=== PATIENT | female | born 1960 | race Caucasian/White ===

== ENCOUNTER 2017-09-22 14:24 | Outpatient (CLI) | payer MEDICARE, MEDICAID ==
[~2017-09-22] VITALS: Ht 170.2 cm; Wt 76.7 kg
[~2017-09-22 14:24] MED LIST: ATOR80TA PO; BISO1TAB39 PO; CEPH250T PO; CLON2TAB16 PO; DULO60CA6 PO; FNT100TD TD; FURO20TA4 PO; HCT25T PO; HYDR-2997 PO; HYDR1TAB86 PO; KETO-22 PO; MTF500T PO; POTA99TA7 PO; QTP100T PO; THYR65TA2 PO; TRM50T PO; WARF4TAB PO
[2017-09-22] MEDS ORDERED: ATOR40TA70 PO (14:41)
[2017-09-22] MEDS ORDERED: METF500T4 PO (14:41)
[2017-09-22] MEDS ORDERED: DICL75TA2 PO (14:41)
[2017-09-22] MEDS ORDERED: ALPR1TAB7 PO (14:41)
[2017-09-22] MEDS ORDERED: BISO1TAB3 PO (14:41)
[2017-09-22] MEDS ORDERED: LEVO25TA5 PO (14:41)
[2017-09-22] MEDS ORDERED: ASPI-808 PO (14:41)
[2017-09-22] MEDS ORDERED: TERBIN250T PO (14:41)
[2017-09-22] MEDS ORDERED: OMEP20CA12 PO (14:41)
[2017-09-22] MEDS ORDERED: DULO60CA58 PO (14:41)
[2017-09-22] MEDS ORDERED: MULT-35 PO (14:41)
[2017-09-22] MEDS ORDERED: LEVE500T6 PO ×2 (14:41)
[2017-09-22 14:46] VITALS: BP 128/90
== END 2017-09-22 15:40 | disposition home or self-care (01) ==
LOC: PREOP 14:24
PROVIDERS: ATTEND Podiatrist Foot & Ankle Surgery
DX: Z01.818 Encounter for other preprocedural examination (principal); Z11.2 Encounter for screening for other bacterial diseases; M20.11 Hallux valgus (acquired), right foot; M20.41 Other hammer toe(s) (acquired), right foot
CPT/HCPCS: 87081

== ENCOUNTER 2017-10-02 11:18 | Day surgery (SDC) | payer MEDICARE, MEDICAID ==
[~2017-10-02] VITALS: Ht 170.2 cm; Wt 76.7 kg
[~2017-10-02 11:18] MED LIST changes: +ALPR1TAB7 PO; +ASPI-808 PO; +ATOR40TA70 PO; +BISO1TAB3 PO; +DICL75TA2 PO; +DULO60CA58 PO; +LEVE500T6 PO; +LEVO25TA5 PO; +METF500T4 PO; +MULT-35 PO; +OMEP20CA12 PO; +TERBIN250T PO
[2017-10-02] MEDS ORDERED: LACTATED RINGERS 1,000 ML IV PRN (11:57)
[2017-10-02] MEDS ORDERED: ceFAZolin INJECTION 1,000 MG in NS (IVPB) 50 ML IV ONE (12:00)
[2017-10-02] MEDS ORDERED: FAMOTIDINE 20MG/2ML IV (PEPCID) IV ONE (12:00)
[2017-10-02 12:11] VITALS: BP 115/86
[2017-10-02] MEDS ORDERED: fentaNYL INJECTION 100 MCG/2 ML AMP ONE (12:43)
[2017-10-02] MEDS ORDERED: DEXAMETHASONE 10 MG/ML (DECADRON) 1 ML VIAL ONE (12:43)
[2017-10-02] MEDS ORDERED: proPOfol 200 MG/20 ML (DIPRIVAN) VIAL IV ONE (12:43)
[2017-10-02] MEDS ORDERED: MIDAZOLAM 2 MG/2 ML (VERSED) VIAL ONE (12:43)
[2017-10-02] MEDS ORDERED: LIDOCAINE PF 2% 5 ML (XYLOCAINE) VIAL ONE (12:43)
[2017-10-02] MEDS ORDERED: SEVOFLURANE (ULTANE) 15 ML INHAL SOLN ONE (12:43)
[2017-10-02] MEDS ORDERED: ONDANSETRON 4 MG/2 ML (SDV) Z0FRAN ONE (12:43)
[2017-10-02] MEDS ORDERED: BUPIVACAINE 0.5% 30 ML (SENSORCAINE) VIAL ONE (12:48)
[2017-10-02] MEDS ORDERED: LIDOCAINE 1% INJ 20 ML (XYLOCAINE) VIAL ONE (12:48)
--- NOTE | 2017-10-02 13:12 | Progress Note-Pre Operative ---
Pre-Operative Progress Note H&P Reviewed The H&P was reviewed, patient examined and no changes noted. Date Seen by Provider: Oct 02, 2017 Time Seen by Provider: 13:11 Date H&P Reviewed: Oct 02, 2017 Time H&P Reviewed: 13:11 Pre-Operative Diagnosis: Hallux Valgus, 2nd Hammertoe, right foot ASHA CAUSEY DPM Oct 02, 2017 1:12 pm
[2017-10-02] MEDS ORDERED: LACTATED RINGERS 1,000 ML IV SCH (15:09)
--- NOTE | 2017-10-02 15:09 | Progress Note-Post Operative ---
Post-Operative Progess Note Surgeon (s)/Inside Sales Manager (s) Surgeon ASHA CAUSEY DPM Inside Sales Manager: none Pre-Operative Diagnosis Hallux Valgus, 2nd Hammertoe, right foot Post-Operative Diagnosis Same Procedure & Operative Findings Date of Procedure 10/02/17 Procedure Performed/Findings Arthrodesis to the right 1st metatarsal-phalangeal joint, reduction of the right 2nd hammertoe Anesthesia Type General Estimated Blood Loss Estimated blood loss (mL): Minimal Specimens/Packing Specimens Removed none ASHA CAUSEY DPM Oct 02, 2017 3:09 pm
[2017-10-02] MEDS ORDERED: ONDANSETRON 4 MG/2 ML (SDV) Z0FRAN IVP PRN (15:15)
[2017-10-02] MEDS ORDERED: ACHD5005 PO (15:15)
[2017-10-02] MEDS ORDERED: CEPH500C PO (15:15)
[2017-10-02] MEDS: morphine INJ 10 MG/ML 1ML (SYR OR VIAL) IVP PRN ×3 (15:27→15:37)
--- NOTE | 2017-10-02 15:43 | Diagnostic Imaging Report ---
INDICATION: Postop. FINDINGS: Bunionectomy and treatment of hallux valgus at the first ray performed in good alignment. A percutaneous pin transfixes the proximal middle and distal phalanges of the second toe. IMPRESSION: Markedly improved forefoot alignment postop. No suspicious retained opaque postop foreign body. Dictated by: Dictated on workstation # [id number]
[2017-10-02 16:10] VITALS: BP 115/72
--- NOTE | 2017-10-02 16:22 | Physical Therapy Ortho Eval ---
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 Subjective Subjective Pt has family assist once home. Entry Into Home: Level Entry Steps Into Home: 0 Steps Inside Home: 0 Motor Control Motor Control: Motor Control WNL right UE not functional for crutches or FWW due to old stroke. Right LE has functional mobility and strength. Mild increase in tone right LE. ROM ROM: WFL, except focal deficit Strength Strength: Gen Weak,No Focal Deficit has functional tone in the right LE Transfer Transfers (B, C, W/C) (FIM): 4 Pt to be wt bearing through the right heal only. This results in minor loss of balance posterior. Family instructed to walk behind the patient with a hand on her low back in the event she would begin to lose balance. Gait Gait Assistive Device: Cane Small Base Quad Right Lower Extremity: Right Weight Bearing Status RLE: Non Weight Bearing Left Lower Extremity: Left Weight Bearing Status LLE: Non Weight Bearing Other Weight Bearing Inst.: non wt bearing through the toes on the right foot Educated patient on wt bearing. Instructed to use a w/c for long distances due to inability to maintain non-wt bearing for long periods. Distance (FIM): 8=802-76 ft Distance: 100 Gait Level of Assist: 4 Summary/Comments Pt still under mild effect of anesthesia. Heel walking causes posterior balance loss. Instructed family in assistance techniques. Assessment/Goals Goal Time Frame: 1 Visit Understands HEP: Yes Safe Ambulation: Yes Plan Treatment Plan: Gait Treatment Duration: 1 visit Visits Per Week: 1 PT/Family Agrees to Plan: Yes Time Time In: 1630 Time Out: 1658 Total Billed Treatment Time: 28 Billed Treatment Time visit, evaluation low complexity 25 minutes AUGUST ASHLEY PT Oct 02, 2017 16:21
[2017-10-02 16:40] VITALS: BP 112/70
--- OUTSIDE RECORDS SUMMARY | 2017-10-02 16:48 | XMS REPORT ---
Author Author LEVON LANDIS [facility] Address [address] [place] [address] Care Team Providers Care Mercantile Agent Name Role Phone LEVON LANDIS Unavailable PROBLEMS Type Condition ICD9-CM Code [id number] Code Onset Dates Condition Status SNOMED Code Problem Moderate episode of recurrent major depressive disorder F33.1 Active 556999994 Problem Toenail fungus B35.1 Active 164538728 Problem Hyperlipidemia, unspecified hyperlipidemia type E78.5 Active 50151485 Problem Type 2 diabetes mellitus without complication, without long-term current use of insulin E11.9 Active 369505546 Problem Seasonal allergic rhinitis, unspecified allergic rhinitis trigger J30.2 Active 261455729 Problem Bunion of great toe of right foot M21.611 Active 978877454 Problem Seizure disorder G40.909 Active 729036257 Problem History of CVA (cerebrovascular accident) Z86.73 Active 482982911 Problem Anxiety F41.9 Active 05956252 Problem Hypothyroidism (acquired) E03.9 Active 162562872 ALLERGIES No Known Allergies SOCIAL HISTORY Never Assessed PLAN OF CARE Activity Details Follow Up 2 - 3 Days Reason: VITAL SIGNS Height 64.0 in 2016-10-28 Weight 153.4 lbs 2016-10-28 Temperature 98.5 degrees Fahrenheit 2016-10-28 Heart Rate 88 bpm 2016-10-28 Respiratory Rate 18 2016-10-28 BMI 26.33 kg/m2 2016-10-28 Blood pressure systolic 124 mmHg 2016-10-28 Blood pressure diastolic 80 mmHg 2016-10-28 MEDICATIONS Medication Instructions Dosage Frequency Start Date End Date Duration Status Lipitor 40 MG Orally Once a day 1 tablet 24h Active Furosemide 80 MG Orally Once a day as needed 1 tablet take for 3 days Active Cymbalta 30 MG Orally Once a day 1 capsule 24h Active Metformin HCl 500 MG Orally Twice a day 1 tablet with meals 12h Active Keppra 500 mg Orally twice a day 1 tablet 12h Active Omeprazole 20 MG Orally Once a day 1 capsule 24h Active Hydrocodone-Acetaminophen 10-325 MG Orally 3 times a day 1 tablet as needed 8h Active Xanax 1 MG Orally 3-4 times a day prn 1 tablet Active Bisoprolol-Hydrochlorothiazide 5-6.25 MG Orally Once a day 1 tablet 24h Active Lamisil 250 MG Orally Once a day 1 tablet 24h Active Prilosec 20 MG Orally Once a day 1 capsule 24h Active Cymbalta 60 MG Orally Once a day 1 capsule 24h Active Levothyroxine Sodium 100 MCG Orally Once a day 1 tablet on an empty stomach in the morning 24h Active Aspirin 325 MG Orally Once a day 1 tablet 24h Active RESULTS Name Result Date Reference Range Xray : Hip, Right 2016-10-28 Xray : Shoulder, Right 2 view 2016-10-28 PROCEDURES Procedure Date Ordered Result Body Site [facility] VISIT ESTABLISHED PATIENT October 28, 2016 IMMUNIZATIONS No Known Immunizations MEDICAL (GENERAL) HISTORY Type Description Date Medical History anxiety Medical History seizures Medical History diabetes mellitus Medical History hyperlipidemia Medical History depression Medical History stroke x2 Medical History seasonal allergies Surgical History cholecystectomy Surgical History tonsillectomy Surgical History section x2 Surgical History breast implants Surgical History Right wrist broken and had wrist surgery Hospitalization History Surgery(s)/Childbirth Hospitalization History Seizures 2016 Hospitalization History Stroke 2005 Hospitalization History Seizures 04/16/2017
--- OUTSIDE RECORDS SUMMARY | 2017-10-02 16:48 | XMS REPORT ---
Author Author MIMI VELIZ [facility] Address [address] [place] [address] Care Team Providers Care General Manager [employer] Name Role Phone MIMI VELIZ Unavailable PROBLEMS Type Condition ICD9-CM Code [id number] Code Onset Dates Condition Status SNOMED Code Problem Moderate episode of recurrent major depressive disorder F33.1 Active 498754591 Problem Toenail fungus B35.1 Active 444877757 Problem Hyperlipidemia, unspecified hyperlipidemia type E78.5 Active 55325749 Problem Type 2 diabetes mellitus without complication, without long-term current use of insulin E11.9 Active 926075947 Problem Seasonal allergic rhinitis, unspecified allergic rhinitis trigger J30.2 Active 837960130 Problem Bunion of great toe of right foot M21.611 Active 587921041 Problem Seizure disorder G40.909 Active 639830606 Problem History of CVA (cerebrovascular accident) Z86.73 Active 292259422 Problem Anxiety F41.9 Active 75226107 Problem Hypothyroidism (acquired) E03.9 Active 618546156 ALLERGIES No Information SOCIAL HISTORY Never Assessed PLAN OF CARE VITAL SIGNS MEDICATIONS Unknown Medications RESULTS No Results PROCEDURES No Known procedures IMMUNIZATIONS No Known Immunizations MEDICAL (GENERAL) HISTORY [...]
--- OUTSIDE RECORDS SUMMARY | 2017-10-02 16:48 | XMS REPORT ---
Author Author MIMI VELIZ [facility] Address [address] [place] [address] Care Team Providers Care Makeup Editor Name Role Phone MIMI VELIZ Unavailable PROBLEMS Type Condition ICD9-CM Code [id number] Code Onset Dates Condition Status SNOMED Code Problem Moderate episode of recurrent major depressive disorder F33.1 Active 348267724 Problem Toenail fungus B35.1 Active 146592273 Problem Hyperlipidemia, unspecified hyperlipidemia type E78.5 Active 07331829 Problem Type 2 diabetes mellitus without complication, without long-term current use of insulin E11.9 Active 710642624 Problem Seasonal allergic rhinitis, unspecified allergic rhinitis trigger J30.2 Active 958213238 Problem Bunion of great toe of right foot M21.611 Active 774309860 Problem Seizure disorder G40.909 Active 812850809 Problem History of CVA (cerebrovascular accident) Z86.73 Active 300146358 Problem Anxiety F41.9 Active 22529760 Problem Hypothyroidism (acquired) E03.9 Active 995373076 ALLERGIES No Information SOCIAL HISTORY Never Assessed PLAN OF CARE VITAL SIGNS MEDICATIONS Unknown Medications RESULTS Name Result Date Reference Range TSH 2016-11-03 TSH 0.074 0.450-4.500 CBC 2016-11-03 WBC 6.4 3.4-10.8 RBC 4.33 3.77-5.28 Hemoglobin 13.4 11.1-15.9 Hematocrit 39.8 34.0-46.6 MCV 92 79-97 MCH 30.9 26.6-33.0 MCHC 33.7 31.5-35.7 RDW 13.9 12.3-15.4 Platelets 469 150-379 Neutrophils 55 Lymphs 32 Monocytes 9 Eos 3 Basos 1 Immature Cells Neutrophils (Absolute) 3.6 1.4-7.0 Lymphs (Absolute) 2.0 0.7-3.1 Monocytes(Absolute) 0.6 0.1-0.9 Eos (Absolute) 0.2 0.0-0.4 Baso (Absolute) 0.1 0.0-0.2 Immature Granulocytes 0 Immature Grans (Abs) 0.0 0.0-0.1 NR Hematology Comments: LIPID PANEL 2016-11-03 Cholesterol, Total 169 100-199 Triglycerides 112 0-149 HDL Cholesterol 60 >39 VLDL Cholesterol Blas 22 5-40 LDL Cholesterol Calc 87 0-99 Comment: CMP 2016-11-03 Glucose, Serum 87 65-99 BUN 13 6-24 Creatinine, Serum 0.89 0.57-1.00 eGFR If NonAfricn Am 73 >59 eGFR If Africn Am 84 >59 BUN/Creatinine Ratio 15 9-23 Sodium, Serum 140 134-144 Potassium, Serum 4.4 3.5-5.2 Chloride, Serum 98 96-106 Carbon Dioxide, Total 22 18-29 Calcium, Serum 10.3 8.7-10.2 Protein, Total, Serum 7.2 6.0-8.5 Albumin, Serum 4.7 3.5-5.5 Globulin, Total 2.5 1.5-4.5 A/G Ratio 1.9 1.2-2.2 Bilirubin, Total 0.3 0.0-1.2 Alkaline Phosphatase, S 108 39-117 AST (SGOT) 21 0-40 ALT (SGPT) 14 0-32 PROCEDURES Procedure Date Ordered Result Body Site ROUTINE VENIPUNCTURE 2016-11-03 N/A LAB NOT BILLED BY [facility] November 03, 2016 IMMUNIZATIONS No Known Immunizations MEDICAL (GENERAL) [...]
--- OUTSIDE RECORDS SUMMARY | 2017-10-02 16:49 | XMS REPORT ---
Author Author MIMI VELIZ [facility] Address [address] [place] [address] Care Team Providers Care Olericulturist Name Role Phone MIMI VELIZ Unavailable PROBLEMS Type Condition ICD9-CM Code [id number] Code Onset Dates Condition Status SNOMED Code Problem Moderate episode of recurrent major depressive disorder F33.1 Active 391230341 Problem Toenail fungus B35.1 Active 556819801 Problem Hyperlipidemia, unspecified hyperlipidemia type E78.5 Active 88279832 Problem Type 2 diabetes mellitus without complication, without long-term current use of insulin E11.9 Active 397886116 Problem Seasonal allergic rhinitis, unspecified allergic rhinitis trigger J30.2 Active 875776588 Problem Bunion of great toe of right foot M21.611 Active 683695681 Problem Seizure disorder G40.909 Active 823959103 Problem History of CVA (cerebrovascular accident) Z86.73 Active 473121466 Problem Anxiety F41.9 Active 45939201 Problem Hypothyroidism (acquired) E03.9 Active 241700528 ALLERGIES No Known Allergies SOCIAL HISTORY Never Assessed PLAN OF CARE VITAL SIGNS MEDICATIONS Medication Instructions Dosage Frequency Start Date End Date Duration Status Xanax 1 MG Orally 3 times a day 1 tablet 8h Active Metformin HCl 500 MG Orally Twice a day 1 tablet with meals 12h Active Lipitor 40 MG Orally Once a day 1 tablet 24h Active Lamisil 250 MG Orally Once a day 1 tablet 24h Active Furosemide 80 MG Orally Once a day as needed 1 tablet Active Prilosec 20 MG Orally Once a day 1 capsule 24h Active Keppra 500 mg Orally twice a day 1 tablet 12h Active Bisoprolol-Hydrochlorothiazide 5-6.25 MG Orally Once a day 1 tablet 24h Active Cymbalta 60 MG Orally Once a day 1 capsule 24h Active Hydrocodone-Acetaminophen 10-325 MG Orally 3 times a day 1 tablet as needed 8h Active Cymbalta 30 MG Orally Once a day 1 capsule 24h Active Levothyroxine Sodium 100 MCG Orally Once a day 1 tablet on an empty stomach in the morning 24h Active RESULTS No Results PROCEDURES No Known procedures [...] surgery Hospitalization History Surgery(s)/Childbirth Hospitalization History Seizures 2015 Hospitalization History Stroke 2004 Hospitalization History Seizures 04/16/2017
--- OUTSIDE RECORDS SUMMARY | 2017-10-02 16:49 | XMS REPORT | CCD ---
Author Author BERT GONZALEZ Unknown Address [address] [place] [address] Care Team Providers Care Histology Assistant Name Role Phone [place] [facility], KUNAL DO Attphys [place] [facility], KUNAL DO Prisurg Allergies Allergy Code Allergy Type Reaction Status No Known Drug Allergies 0 Drug allergy Active Active Medications Medication Code Dose Units Frequency Route Modification Start Date/Time HYDROcodone bitartrate-acetaminophen 10MG-325MG Oral Tablet 160282 1 TABLET NEEDED EVERY 4 HR BY MOUTH 05/28/2016 15:51 Prescription Detail 1 TABLET BY MOUTH NEEDED EVERY 4 HR Isopto Tears 0.5% Ophthalmic Solution 169070 1 DROP NEEDED BOTH EYES 05/28/2016 15:51 Prescription Detail 1 DROP BOTH EYES NEEDED levETIRAcetam 500MG Oral Tablet 245832 500 MILLIGRAMS TWO TIMES A DAY BY MOUTH 05/28/2016 15:51 Prescription Detail 500 MILLIGRAMS BY MOUTH TWO TIMES A DAY traMADol HCl 50MG Oral Tablet 623219 50 MILLIGRAMS NEEDED EVERY 6 HR BY MOUTH 05/28/2016 15:51 Prescription Detail 50 MILLIGRAMS BY MOUTH NEEDED EVERY 6 HR Aspir 81 81MG Oral Tablet, Enteric Coated 751615 1 TABLET DAILY BY MOUTH 05/21/2016 10:23 Prescription Detail 1 TABLET BY MOUTH DAILY Bisoprolol Fumarate/hydroCHLOROthiazide 5MG-6.25MG Oral Tablet 119919 1 EACH DAILY ORAL 05/21/2016 10:23 Prescription Detail 1 EACH ORAL DAILY DULoxetine HCl 60MG Oral Capsule, Delayed Release 224109 60 MILLIGRAMS DAILY ORAL 05/21/2016 10:23 Prescription Detail 60 MILLIGRAMS ORAL DAILY Levothyroxine 100MCG Oral Tablet 094052 100 MCG DAILY ORAL 05/21/2016 10:23 Prescription Detail 100 MCG ORAL DAILY Multivitamin Oral Tablet 7079201 1 EACH DAILY ORAL 05/21/2016 10:23 Prescription Detail 1 EACH ORAL DAILY Omeprazole 20MG Oral Capsule, Delayed Release 357491 20 MILLIGRAMS DAILY ORAL 05/21/2016 10:23 Prescription Detail 20 MILLIGRAMS ORAL DAILY Mapap Extra Strength 500MG Oral Tablet 298423 500 MILLIGRAMS NEEDED BY MOUTH 05/21/2016 10:22 Prescription Detail 500 MILLIGRAMS BY MOUTH NEEDED Tricor 48MG Oral Tablet 145771 48 MILLIGRAMS DAILY BY MOUTH 05/21/2016 10:22 Prescription Detail 48 MILLIGRAMS BY MOUTH DAILY Alprazolam 0.25MG Oral Tablet 219745 0.5 MILLIGRAMS NEEDED EVERY 8 HR BY MOUTH 03/09/2014 08:17 Prescription Detail 0.5 MILLIGRAMS BY MOUTH NEEDED EVERY 8 HR Atorvastatin Calcium 40MG Oral Tablet 836727 40 MILLIGRAMS DAILY ORAL 03/09/2014 08:16 Prescription Detail 40 MILLIGRAMS ORAL DAILY Metformin 500MG Oral Tablet 282098 500 MILLIGRAMS TWO TIMES A DAY ORAL 03/09/2014 08:16 Prescription Detail 500 MILLIGRAMS ORAL TWO TIMES A DAY Problems Problem Code Start Date Resolved Date Status TIA 212657907 05/16/2016 Active Aphasia 49838531 05/16/2016 Active Seizures 47172836 05/16/2016 Active Procedures Unknown or Not Available. Results Unknown or Not Available. Function Status Unknown or Not Available. History of Immunizations Immunization Code Date MMR 03 02/11/2001 MMR 03 04/02/2001 pneumococcal, unspecified formulation 109 08/17/2014 Pneumococcal conjugate PCV 13 133 07/23/2015 Influenza, seasonal, injectable, preservative free 140 2014 influenza, injectable, quadrivalent, preservative free 150 2015 Plan of Treatment Unknown or Not Available. Social History Smoking Status Code Start Date End Date Current every day smoker 145725850 Vital Signs Unknown or Not Available. Function Status Unknown or Not Available. Goals Unknown or Not Available. ASSESSMENTS Unknown or Not Available. Health Concerns Section Unknown or Not Available.
--- OUTSIDE RECORDS SUMMARY | 2017-10-02 16:49 | XMS REPORT ---
Author Author MIMI VELIZ [facility] Address [address] [place] [address] Care Team Providers Care Licensed Home Inspector Name Role Phone MIMI VELIZ Unavailable PROBLEMS Type Condition ICD9-CM Code [id number] Code Onset Dates Condition Status SNOMED Code Problem Moderate episode of recurrent major depressive disorder F33.1 Active 790556154 Problem Toenail fungus B35.1 Active 753499237 Problem Hyperlipidemia, unspecified hyperlipidemia type E78.5 Active 73843028 Problem Type 2 diabetes mellitus without complication, without long-term current use of insulin E11.9 Active 444720700 Problem Seasonal allergic rhinitis, unspecified allergic rhinitis trigger J30.2 Active 046145130 Problem Bunion of great toe of right foot M21.611 Active 729617522 Problem Seizure disorder G40.909 Active 506578709 Problem History of CVA (cerebrovascular accident) Z86.73 Active 310095125 Problem Anxiety F41.9 Active 78664726 Problem Hypothyroidism (acquired) E03.9 Active 525357019 ALLERGIES No Information SOCIAL HISTORY Never Assessed [...]
--- OUTSIDE RECORDS SUMMARY | 2017-10-02 16:49 | XMS REPORT | CCD ---
Author Author BERT GONZALEZ Unknown Address [address] [place] [address] Care Team Providers Care Color Card Maker Name Role Phone HEATHER DAIGLE MD Attphys PHOENIX NICHOLAS, KUNAL WILSON Prisurg F., CHERRI NASST G., HUSAM NASST R., MARIXA Salazar NASST K., SUNNI Green NASST R., [place] Green NASST R., ZULMA [place] NASST W., AIME NASST V., GERSON NASST K., JEREMIAS NASST D., PETERSON Potts NASST C., SANDI NASST S., MARQUISE NASST K., KATYA NASST S., ELIU Green NASST S., DELONTE NASST G., LORY NASST R., PERFECTO NASST Allergies Allergy Code Allergy Type Reaction Status No Known Drug Allergies 0 Drug allergy Active Active Medications Problems Problem Code Start Date Resolved Date Status TIA 764746601 05/16/2016 Active Aphasia 90831217 05/16/2016 Active Seizures 94932482 05/16/2016 Active Anemia 955695568 03/06/2014 05/17/2016 Resolved GI bleed 39250191 03/06/2014 05/17/2016 Resolved Procedures Procedure Code Procedure Type Date OT ADL TRAINING/POSITIONING EA 15MIN 743371123 SNOMED CT 05/20/2016 OT EVALUATION 408618563 SNOMED CT 05/20/2016 PT GAIT TRAINING/STAIRS EA [address] 05/19 PT EVALUATION 105323330 SNOMED CT 05/19/2016 MRI BRAIN INC STEM W/O CONTRAST 02711287 SNOMED CT 2015 US CAROTID DUPLEX COMP/GABRIELLE 75730365 SNOMED CT 05/16/2016 US ECHO 2D COMP WITH DOPP AND COLOR 68484620 SNOMED CT CT HEAD W/O CONTRAST 149701394 SNOMED CT 05/16/[address] 05/20/2016 HEMOGLOBIN A1C 35897771 SNOMED CT 05/21/2016 BASIC METABOLIC PANEL 395418046 SNOMED CT 05/21/2016 CBC W/ AUTO DIFF (RFLX MAN DIFF IF IND) 7445759 SNOMED CT 05/21/[address] 05/21/2016 BASIC METABOLIC PANEL 718048505 SNOMED CT 05/20/2016 CBC W/ AUTO DIFF (RFLX MAN DIFF IF IND) 6459605 SNOMED CT 05/20/2016 LIPID PANEL 39986628 SNOMED [address] 05/19/[address] 05/19/[address] 05/18/2016 COMPREHENSIVE METABOLIC PANEL 804826884 SNOMED CT 2015 CBC W/ AUTO DIFF (RFLX MAN DIFF IF IND) 0578569 SNOMED CT 05/19/2016 T4 FREE 8067104 SNOMED CT 05/18/2016 COMPREHENSIVE METABOLIC PANEL 632866206 SNOMED CT 2015 CBC W/ AUTO DIFF (RFLX MAN DIFF IF IND) 8751484 SNOMED CT 05/18/[address] 05/17/2016 LIPID PANEL 11851227 SNOMED [address] 05/17/[address] 05/17/[address] 05/17/2016 COMPREHENSIVE METABOLIC PANEL 009123266 SNOMED CT 2015 CBC W/ AUTO DIFF (RFLX MAN DIFF IF IND) 9115584 SNOMED CT 05/17/2016 TROPONIN-I ADV 288790890 SNOMED CT 05/17/2016 TROPONIN-I ADV 988255635 SNOMED CT 05/16/2016 TROPONIN-I ADV 298226495 SNOMED CT 05/16/[address] 05/16/[address] 05/16/2016 RAPID DRUG SCREEN 468415889 SNOMED CT 05/16/2016 UA ROUTINE C&S IF IND 603504530 SNOMED CT 05/16/[address] 05/16/2016 TROPONIN-I ADV 043471725 SNOMED CT 05/16/2016 COMPREHENSIVE METABOLIC PANEL 710008979 SNOMED CT 2015 CBC W/ AUTO DIFF (RFLX MAN DIFF IF IND) 4781807 SNOMED CT 05/16/2016 ^CBC W/AUTO DIFF 5415705 SNOMED CT 05/21/2016 ^CBC W/AUTO DIFF 4306941 SNOMED CT 05/20/2016 ^CBC W/AUTO DIFF 1563676 SNOMED CT 05/19/2016 ^CBC W/AUTO DIFF 7209500 SNOMED CT 05/18/2016 ^CBC W/AUTO DIFF 9722264 SNOMED CT 05/17/2016 ^UA AUTO DIPSTICK ONLY 264636660 SNOMED CT 05/16/2016 ^CBC W/AUTO DIFF 1787840 SNOMED CT 05/16/2016 Results BASIC METABOLIC PANEL - Collect Date/Time: 05/21/2016 06:30 Test Name Code Test Result Test Units Test Ref Range GLUCOSE 2345-7 98 MG/DL L=70 H=100 SODIUM 2951-2 142 MEQ/L L=135 H=148 POTASSIUM 2823-3 3.7 MEQ/L L=3.5 H=5.3 CHLORIDE 2075-0 107 MEQ/L L=96 H=110 CO2 2028-9 25 MEQ/L L=22 H=29 BUN 3094-0 8 MG/DL L=8 H=22 CREATININE 2160-0 0.7 MG/DL L=0.6 H=1.6 CALCIUM 40328-1 9.9 MG/DL L=8.2 H=10.6 AGE [birth year]-3 55 yrs GFR NonAA 36064-0 87 [place]FR [place] 78352-2 105 eGFR 37029-2 >60 N/A eGFR AA* 72797-8 >60 N/A BASIC METABOLIC PANEL - Collect Date/Time: 05/20/2016 06:20 Test Name Code Test Result Test Units Test Ref Range GLUCOSE 2345-7 88 MG/DL L=70 H=100 SODIUM 2951-2 142 MEQ/L L=135 H=148 POTASSIUM 2823-3 4.1 MEQ/L L=3.5 H=5.3 CHLORIDE 2075-0 107 MEQ/L L=96 H=110 CO2 2028-9 23 MEQ/L L=22 H=29 BUN 3094-0 11 MG/DL L=8 H=22 CREATININE 2160-0 0.8 MG/DL L=0.6 H=1.6 CALCIUM 65022-3 9.9 MG/DL L=8.2 H=10.6 AGE 94686-6 55 yrs GFR NonAA 53939-3 75 GFR AA 02405-9 91 eGFR 13714-9 >60 N/A eGFR AA* 65263-3 >60 N/A COMPREHENSIVE METABOLIC PANEL - Collect Date/Time: 05/19/2016 06:15 Test Name Code Test Result Test Units Test Ref Range GLUCOSE 2345-7 88 MG/DL L=70 H=100 SODIUM 2951-2 142 MEQ/L L=135 H=148 POTASSIUM 2823-3 3.9 MEQ/L L=3.5 H=5.3 CHLORIDE 2075-0 107 MEQ/L L=96 H=110 CO2 2028-9 23 MEQ/L L=22 H=29 BUN 3094-0 20 MG/DL L=8 H=22 CREATININE 2160-0 0.8 MG/DL L=0.6 H=1.6 SGOT/AST 1920-8 11 IU/L L=10 H=40 SGPT/ALT 1742-6 11 IU/L L=8 H=54 ALK PHOS 6768-6 100 IU/L L=35 H=115 TOTAL PROTEIN 2885-2 6.3 G/DL L=5.5 H=8.5 ALBUMIN 1751-7 4.1 G/DL L=3.1 H=5.4 TOTAL BILI 1975-2 0.8 MG/DL L=0.0 H=1.5 CALCIUM 43152-8 9.3 MG/DL L=8.2 H=10.6 AGE 28598-4 55 yrs GFR NonAA 35716-7 75 [place]FR [place] 20671-9 91 eGFR 89326-7 >60 N/A eGFR AA* 40779-3 >60 N/A COMPREHENSIVE METABOLIC PANEL - Collect Date/Time: 05/18/2016 06:25 Test Name Code Test Result Test Units Test Ref Range GLUCOSE 2345-7 91 MG/DL L=70 H=100 SODIUM 2951-2 141 MEQ/L L=135 H=148 POTASSIUM 2823-3 4.2 MEQ/L L=3.5 H=5.3 CHLORIDE 2075-0 107 MEQ/L L=96 H=110 CO2 2028-9 24 MEQ/L L=22 H=29 BUN 3094-0 15 MG/DL L=8 H=22 CREATININE 2160-0 0.8 MG/DL L=0.6 H=1.6 SGOT/AST 1920-8 15 IU/L L=10 H=40 SGPT/ALT 1742-6 12 IU/L L=8 H=54 ALK PHOS 6768-6 110 IU/L L=35 H=115 TOTAL PROTEIN 2885-2 6.8 G/DL L=5.5 H=8.5 ALBUMIN 1751-7 4.3 G/DL L=3.1 H=5.4 TOTAL BILI 1975-2 0.5 MG/DL L=0.0 H=1.5 CALCIUM 63931-9 9.8 MG/DL L=8.2 H=10.6 AGE [address]1927-8 55 yrs GFR NonAA 61869-8 75 GFR AA 10192-0 91 eGFR 77544-8 >60 N/A eGFR AA* 30079-1 >60 N/A COMPREHENSIVE METABOLIC PANEL - Collect Date/Time: 05/17/2016 04:00 Test Name Code Test Result Test Units Test Ref Range GLUCOSE 2345-7 92 MG/DL L=70 H=100 SODIUM 2951-2 140 MEQ/L L=135 H=148 POTASSIUM 2823-3 3.0 MEQ/L L=3.5 H=5.3 CHLORIDE 2075-0 102 MEQ/L L=96 H=110 CO2 2028-9 25 MEQ/L L=22 H=29 BUN 3094-0 15 MG/DL L=8 H=22 CREATININE 2160-0 0.8 MG/DL L=0.6 H=1.6 SGOT/AST 1920-8 13 IU/L L=10 H=40 SGPT/ALT 1742-6 10 IU/L L=8 H=54 ALK PHOS 6768-6 108 IU/L L=35 H=115 TOTAL PROTEIN 2885-2 6.8 G/DL L=5.5 H=8.5 ALBUMIN 1751-7 4.3 G/DL L=3.1 H=5.4 TOTAL BILI 1975-2 0.7 MG/DL L=0.0 H=1.5 CALCIUM 46470-3 9.6 MG/DL L=8.2 H=10.6 AGE [birth year][address]-1 55 yrs GFR NonAA 44267-3 75 [place] [address]-7 91 eGFR 52565-4 >60 N/A eGFR AA* 99723-3 >60 N/A COMPREHENSIVE METABOLIC PANEL - Collect Date/Time: 05/16/2016 13:35 Test Name Code Test Result Test Units Test Ref Range GLUCOSE 2345-7 108 MG/DL L=70 H=100 SODIUM 2951-2 141 MEQ/L L=135 H=148 POTASSIUM 2823-3 3.4 MEQ/L L=3.5 H=5.3 CHLORIDE 2075-0 102 MEQ/L L=96 H=110 CO2 2028-9 25 MEQ/L L=22 H=29 BUN 3094-0 10 MG/DL L=8 H=22 CREATININE 2160-0 0.9 MG/DL L=0.6 H=1.6 SGOT/AST 1920-8 16 IU/L L=10 H=40 SGPT/ALT 1742-6 8 IU/L L=8 H=54 ALK PHOS 6768-6 126 IU/L L=35 H=115 TOTAL PROTEIN 2885-2 7.3 G/DL L=5.5 H=8.5 ALBUMIN 1751-7 4.7 G/DL L=3.1 H=5.4 TOTAL BILI 1975-2 0.7 MG/DL L=0.0 H=1.5 CALCIUM 95150-8 9.9 MG/DL L=8.2 H=10.6 AGE 55 yrs GFR NonAA 65 GFR AA 79 eGFR >60 N/A eGFR AA* >60 N/A CPK - Collect Date/Time: 05/16/2016 13:35 Test Name Code Test Result Test Units Test Ref Range CPK 2157-6 101 IU/L L=0 H=235 LIPID PANEL - Collect Date/Time: 05/19/2016 06:15 Test Name Code Test Result Test Units Test Ref Range TRIGLYCERIDES 3043-7 136 MG/DL L=0 H=135 CHOLESTEROL 2093-3 125 MG/DL L=0 H=199 HDL 2085-9 39 MG/DL L=29 H=89 TOT CHOL/HDL 76789-0 3.2 L=0.0 H=5.0 LDL (CALC) 2089-1 59 MG/DL L=0 H=129 LIPID PANEL - Collect Date/Time: 05/17/2016 04:00 Test Name Code Test Result Test Units Test Ref Range TRIGLYCERIDES 3043-7 168 MG/DL L=0 H=135 CHOLESTEROL 2093-3 130 MG/DL L=0 H=199 HDL 2085-9 35 MG/DL L=29 H=89 TOT CHOL/HDL 83843-9 3.7 L=0.0 H=5.0 LDL (CALC) 2089-1 61 MG/DL L=0 H=129 RAPID DRUG SCREEN - Collect Date/Time: 05/16/2016 15:05 Test Name Code Test Result Test Units Test Ref Range Cannabinoids (THC) NEGATIVE N/A NEG: < 50 ng/ ml Phencyclidine (PCP) NEGATIVE N/A NEG: < 25 ng/ ml Cocaine NEGATIVE N/A NEG: < 300 ng/ml Methamphetamine NEGATIVE N/A NEG: < 1000 ng/ml Opiates NON-NEGATIVE N/A NEG: < 300 ng/ml Amphetamine NEGATIVE N/A NEG: < 1000 ng/ml Benzodiazepines NON-NEGATIVE N/A NEG: < 300 ng/ ml Tricyclic Antidepres NON-NEGATIVE N/A NEG: < 300 ng/ml Methadone NEGATIVE N/A NEG: < 300 ng/ml Barbiturates NEGATIVE N/A NEG: < 200 ng/ml Oxycodone NEGATIVE N/A NEG: < 100 ng/ml Propoxyphene (PPX) NEGATIVE N/A NEG: < 300 ng/ ml CBC W/ AUTO DIFF (RFLX MAN DIFF IF IND) - Collect Date/Time: 05/21/2016 06:30 Test Name Code Test Result Test Units Test Ref Range WBC 08130-9 5.7 TH/CMM L=4.5 H=10.8 RBC 789-8 4.54 ML/CMM L=4.20 H=5.40 HGB 718-7 14.0 G/DL L=12.0 H=16.0 HCT 4544-3 42.5 % L=37.0 H=47.0 MCV 24578-7 94 FL L=81 H=99 MCH 50437-0 30.8 PG L=27.0 H=33.0 MCHC 42871-6 32.9 G/DL L=31.0 H=36[place]0 [place] [address]-2 47 FL L=36 H=50 [place] [address]-2 13.5 % L=0.0 H=14.8 MPV 67285-6 9.5 FL L=9.3 H=12.5 PLT 777-3 403 TH/CMM L=130 H=440 NRBC# 04146-0 0.00 TH/CMM L=0.00 H=0.00 NRBC% 74660-8 0.0 /100WBC L=0.0 H=2.0 %NEUT 58379-5 39.0 % %LYMP 87448-0 49.1 % %MONO 09522-8 7.4 % %EOS 63544-8 3.2 % %BASO 39565-5 1.1 % #NEUT 30561-0 2.21 TH/CMM L=2.10 H=8.20 #LYMP 71190-6 2.78 TH/CMM L=0.90 H=5.20 #MONO 80290-4 0.42 TH/CMM L=0.16 H=1.00 #EOS 29512-8 0.18 TH/CMM L=0.00 H=0.80 #BASO 95620-8 0.06 TH/CMM L=0.00 H=0.20 MANUAL DIFF 25849-9 NOT IND N/A CBC W/ AUTO DIFF (RFLX MAN DIFF IF IND) - Collect Date/Time: 05/20/2016 06:20 Test Name Code Test Result Test Units Test Ref Range WBC 02720-8 6.5 TH/CMM L=4.5 H=10.8 RBC 789-8 4.58 ML/CMM L=4.20 H=5.40 HGB 718-7 14.0 G/DL L=12.0 H=16.0 HCT 4544-3 42.9 % L=37.0 H=47.0 MCV 21235-5 94 FL L=81 H=99 MCH 99787-3 30.6 PG L=27.0 H=33.0 MCHC 93595-6 32.6 G/DL L=31.0 H=36[place] [address]-9 46 FL L=36 H=50 [place] [address]-6 13.4 % L=0.0 H=14.8 MPV 45879-8 9.3 FL L=9.3 H=12.5 PLT 777-3 394 TH/CMM L=130 H=440 NRBC# 27855-0 0.00 TH/CMM L=0.00 H=0.00 NRBC% 75925-3 0.0 /100WBC L=0.0 H=2.0 %NEUT 29081-4 46.8 % %LYMP 23503-2 42.0 % %MONO 94634-6 6.3 % %EOS 06875-4 3.5 % %BASO 65193-0 1.2 % #NEUT 30313-9 3.05 TH/CMM L=2.10 H=8.20 #LYMP 87596-1 2.74 TH/CMM L=0.90 H=5.20 #MONO 30289-6 0.41 TH/CMM L=0.16 H=1.00 #EOS 81136-7 0.23 TH/CMM L=0.00 H=0.80 #BASO 49104-9 0.08 TH/CMM L=0.00 H=0.20 MANUAL DIFF 90190-1 NOT IND N/A CBC W/ AUTO DIFF (RFLX MAN DIFF IF IND) - Collect Date/Time: 05/19/2016 06:15 Test Name Code Test Result Test Units Test Ref Range WBC 61714-9 7.0 TH/CMM L=4.5 H=10.8 RBC 789-8 4.22 ML/CMM L=4.20 H=5.40 HGB 718-7 13.0 G/DL L=12.0 H=16.0 HCT 4544-3 39.9 % L=37.0 H=47.0 MCV 78535-8 95 FL L=81 H=99 MCH 00033-1 30.8 PG L=27.0 H=33.0 MCHC 86158-2 32.6 G/DL L=31.0 H=36[place] [address]-0 47 FL L=36 H=50 [place] [address]-6 13.5 % L=0.0 H=14.8 MPV 36748-5 9.6 FL L=9.3 H=12.5 PLT 777-3 357 TH/CMM L=130 H=440 NRBC# 09183-0 0.00 TH/CMM L=0.00 H=0.00 NRBC% 44683-6 0.0 /100WBC L=0.0 H=2.0 %NEUT 93825-8 44.4 % %LYMP 98546-0 44.5 % %MONO 70822-6 6.1 % %EOS 08157-4 3.4 % %BASO 14377-4 1.3 % #NEUT 00294-7 3.11 TH/CMM L=2.10 H=8.20 #LYMP 13275-6 3.12 TH/CMM L=0.90 H=5.20 #MONO 09705-1 0.43 TH/CMM L=0.16 H=1.00 #EOS 13212-9 0.24 TH/CMM L=0.00 H=0.80 #BASO 18335-4 0.09 TH/CMM L=0.00 H=0.20 MANUAL DIFF 10916-3 NOT IND N/A CBC W/ AUTO DIFF (RFLX MAN DIFF IF IND) - Collect Date/Time: 05/18/2016 06:25 Test Name Code Test Result Test Units Test Ref Range WBC 41467-4 7.9 TH/CMM L=4.5 H=10.8 RBC 789-8 4.57 ML/CMM L=4.20 H=5.40 HGB 718-7 14.0 G/DL L=12.0 H=16.0 HCT 4544-3 43.1 % L=37.0 H=47.0 MCV 59952-0 94 FL L=81 H=99 MCH 77435-9 30.6 PG L=27.0 H=33.0 MCHC 58233-6 32.5 G/DL L=31.0 H=36[place] [address]-8 48 FL L=36 H=50 [place] [address]-4 13.6 % L=0.0 H=14.8 MPV 61744-4 9.4 FL L=9.3 H=12.5 PLT 777-3 378 TH/CMM L=130 H=440 NRBC# 60631-2 0.00 TH/CMM L=0.00 H=0.00 NRBC% 24070-4 0.0 /100WBC L=0.0 H=2.0 %NEUT 78906-0 46.2 % %LYMP 83323-8 43.0 % %MONO 85431-4 7.1 % %EOS 13921-7 2.3 % %BASO 53624-5 1.1 % #NEUT 20268-4 3.65 TH/CMM L=2.10 H=8.20 #LYMP 67567-3 3.40 TH/CMM L=0.90 H=5.20 #MONO 59856-6 0.56 TH/CMM L=0.16 H=1.00 #EOS 79945-6 0.18 TH/CMM L=0.00 H=0.80 #BASO 68682-5 0.09 TH/CMM L=0.00 H=0.20 MANUAL DIFF 66880-7 NOT IND N/A CBC W/ AUTO DIFF (RFLX MAN DIFF IF IND) - Collect Date/Time: 05/17/2016 04:00 Test Name Code Test Result Test Units Test Ref Range WBC 65856-7 7.5 TH/CMM L=4.5 H=10.8 RBC 789-8 4.39 ML/CMM L=4.20 H=5.40 HGB 718-7 13.5 G/DL L=12.0 H=16.0 HCT 4544-3 40.4 % L=37.0 H=47.0 MCV 95138-9 92 FL L=81 H=99 MCH 08624-0 30.8 PG L=27.0 H=33.0 MCHC 14569-8 33.4 G/DL L=31.0 H=36[place]0 [place] [address]-0 45 FL L=36 H=50 [place] [address]-1 13.3 % L=0.0 H=14.8 MPV 92010-3 9.1 FL L=9.3 H=12.5 PLT 777-3 364 TH/CMM L=130 H=440 NRBC# 32825-7 0.00 TH/CMM L=0.00 H=0.00 NRBC% 06299-7 0.0 /100WBC L=0.0 H=2.0 %NEUT 90194-0 44.6 % %LYMP 61930-5 44.1 % %MONO 13787-9 8.9 % %EOS 73066-9 1.2 % %BASO 93453-8 1.1 % #NEUT 29015-0 3.35 TH/CMM L=2.10 H=8.20 #LYMP 85128-8 3.31 TH/CMM L=0.90 H=5.20 #MONO 12062-8 0.67 TH/CMM L=0.16 H=1.00 #EOS 59785-4 0.09 TH/CMM L=0.00 H=0.80 #BASO 37016-8 0.08 TH/CMM L=0.00 H=0.20 MANUAL DIFF 46999-8 NOT IND N/A CBC W/ AUTO DIFF (RFLX MAN DIFF IF IND) - Collect Date/Time: 05/16/2016 13:35 Test Name Code Test Result Test Units Test Ref Range WBC 90109-9 5.7 TH/CMM L=4.5 H=10.8 RBC 789-8 4.72 ML/CMM L=4.20 H=5.40 HGB 718-7 14.4 G/DL L=12.0 H=16.0 HCT 4544-3 43.8 % L=37.0 H=47.0 MCV 93 FL L=81 H=99 MCH 30.5 PG L=27.0 H=33.0 MCHC 32.9 G/DL L=31.0 H=36.0 RDW SD 45 FL L=36 H=50 RDW CV 13.2 % L=0.0 H=14.8 MPV 9.1 FL L=9.3 H=12.5 PLT 777-3 368 TH/CMM L=130 H=440 NRBC# 0.00 TH/CMM L=0.00 H=0.00 NRBC% 0.0 /100WBC L=0.0 H=2.0 %NEUT 65.0 % %LYMP 26.8 % %MONO 6.7 % %EOS 0.4 % %BASO 0.9 % #NEUT 3.72 TH/CMM L=2.10 H=8.20 #LYMP 1.53 TH/CMM L=0.90 H=5.20 #MONO 0.38 TH/CMM L=0.16 H=1.00 #EOS 0.02 TH/CMM L=0.00 H=0.80 #BASO 0.05 TH/CMM L=0.00 H=0.20 MANUAL DIFF NOT IND N/A PROTIME - Collect Date/Time: 05/21/2016 06:30 Test Name Code Test Result Test Units Test Ref Range PROTIME 32091-6 15.8 SEC L=9.9 H=11.9 INR 60873-1 1.4 PROTIME - Collect Date/Time: 05/20/2016 12:05 Test Name Code Test Result Test Units Test Ref Range PROTIME 66476-1 13.3 SEC L=9.9 H=11.9 INR 77432-7 1.2 PROTIME - Collect Date/Time: 05/19/2016 06:15 Test Name Code Test Result Test Units Test Ref Range PROTIME 75425-6 12.3 SEC L=9.9 H=11.9 INR 22294-9 1.1 PROTIME - Collect Date/Time: 05/18/2016 09:00 Test Name Code Test Result Test Units Test Ref Range PROTIME 26622-3 14.4 SEC L=9.9 H=11.9 INR 76884-0 1.3 PROTIME - Collect Date/Time: 05/16/2016 13:35 Test Name Code Test Result Test Units Test Ref Range PROTIME 90468-1 33.1 SEC L=9.9 H=11.9 INR 3.0 UA ROUTINE C&S IF IND - Collect Date/Time: 05/16/2016 15:00 Test Name Code Test Result Test Units Test Ref Range COLOR YELLOW N/A NL: YELLOW APPEARANCE CLEAR N/A NL: CLEAR SPEC GRAV >=1.030 N/A NL: 1.002 - 1.022 pH 6.0 N/A NL: 5 - 9 PROTEIN NEGATIVE N/A NL: NEGATIVE mg/dl GLUCOSE NEGATIVE N/A NL: NEGATIVE mg/dl KETONE TRACE N/A NL: NEGATIVE mg/dl BILIRUBIN NEGATIVE N/A NL: NEGATIVE BLOOD NEGATIVE N/A NL: NEGATIVE NITRITE NEGATIVE N/A NL: NEGATIVE LEUK SCREEN NEGATIVE N/A NL: NEGATIVE MICRO INDICATED? NOT INDICATED N/A HEMOGLOBIN A1C - Collect Date/Time: 05/21/2016 06:30 Test Name Code Test Result Test Units Test Ref Range HGB A1C 16542-7 5.3 % L=4.0 H=6.4 Est Avg Glucose 33265-9 105.4 mg/dL TROPONIN-I ADV - Collect Date/Time: 05/17/2016 04:00 Test Name Code Test Result Test Units [place] [address]-1 <0.04 ng/mL L=0.04 H= 0.40 TROPONIN-I ADV - Collect Date/Time: 05/16/2016 23:45 Test Name Code Test Result Test Units [place] [address]-6 <0.04 ng/mL L=0.04 H= 0.40 TROPONIN-I ADV - Collect Date/Time: 05/16/2016 20:10 Test Name Code Test Result Test Units [place] [address]-2 <0.04 ng/mL L=0.04 H= 0.40 TROPONIN-I ADV - Collect Date/Time: 05/16/2016 13:35 Test Name Code Test Result Test Units Test [place] [address]-1 <0.04 ng/mL L=0.04 H= 0.40 T4 FREE - Collect Date/Time: 05/18/2016 06:25 Test Name Code Test Result Test Units Test Ref Range FREE T4 3024-7 1.26 NG/DL L=0.71 H=1.85 TSH - Collect Date/Time: 05/17/2016 04:00 Test Name Code Test Result Test Units Test Ref Range TSH 65161-1 <0.06 mIU/L L=0.35 H=4.94 TSH - Collect Date/Time: 05/16/2016 13:35 Test Name Code Test Result Test Units Test Ref Range TSH 56933-7 <0.06 mIU/L L=0.35 H=4.94 MAGNESIUM - Collect Date/Time: 05/17/2016 04:00 Test Name Code Test Result Test Units Test Ref Range MAGNESIUM 91122-6 2.4 MG/DL L=1.7 H=2.8 PHOSPHORUS - Collect Date/Time: 05/17/2016 04:00 Test Name Code Test Result Test Units Test Ref Range PHOSPHORUS 2777-1 4.5 MG/DL L=2.5 H=4.5 Function Status Unknown or Not Available. History of Immunizations Immunization Code Date MMR 02/11/2001 MMR 03 04/02/2001 pneumococcal, unspecified formulation 109 08/17/2014 Pneumococcal conjugate PCV 13 133 07/23/2015 Influenza, seasonal, injectable, preservative free 140 2014 influenza, injectable, quadrivalent, preservative free 150 2015 Plan of Treatment Unknown or Not Available. Social History Smoking Status Code Start Date End Date Current every day smoker [id number] Vital Signs Vital Sign Value Unit Date/Time Recent/Initial? BP Systolic 134 mm[Hg] 05/16/2016 17:32 Initial VS BP Diastolic 81 mm[Hg] 05/16/2016 17:32 Initial VS Respiratory Rate 16 /min 05/16/2016 17:32 Initial VS Heart Rate 60 /min 05/16/2016 17:32 Initial VS O2 % BldC Oximetry 97 % 05/16/2016 17:32 Initial VS Body Temperature 98.8 [degF] 05/16/2016 17:32 Initial VS Weight Measured 153.71 [lb_av] 05/17/2016 08:51 Initial VS Height 66 [in_i] 05/17/2016 08:51 Initial VS BMI (Body Mass Index) 24.81 kg/m2 05/17/2016 08:51 Initial VS BSA (Body Surface Area) 1.8 m2 05/17/2016 08:51 Initial VS BP Systolic 130 mm[Hg] 05/21/2016 11:10 Most Recent VS BP Diastolic 86 mm[Hg] 05/21/2016 11:10 Most Recent VS Respiratory Rate 18 /min 05/21/2016 11:10 Most Recent VS Heart Rate 65 /min 05/21/2016 11:10 Most Recent VS O2 % BldC Oximetry 97 % 05/21/2016 11:10 Most Recent VS Body Temperature 97.1 [degF] 05/21/2016 11:10 Most Recent VS Function Status Unknown or Not Available. Goals Unknown or Not Available. ASSESSMENTS Unknown or Not Available. Health Concerns Section Unknown or Not Available.
--- OUTSIDE RECORDS SUMMARY | 2017-10-02 16:49 | XMS REPORT ---
Author Frank Ang [facility] Address [address] [place], [place] [id number] Care Team Providers Care Telegraph Mechanic Name Role Phone Frank Alcaraz PCP Allergies and Adverse Reactions Not available. Plan of Treatment Not available. Medications Not available. Problem List Not available. Vital Signs Date Time BP-Sys(mm[Hg] BP-Pauly(mm[Hg]) HR(bpm) RR(rpm) Temp WT HT HC BMI BSA BMI Percentile O2 Sat(%) 08/29/2016 2:44:00 PM 112 mmHg 72 mmHg 79 bpm 18 rpm 96.1 F 152.125 lbs 67 in 23.83 kg/m2 1.81 m2 97 % Social History Not available. History of Procedures Date Ordered Description Order Status 08/29/2016 12:00 AM COMPLETE CBC W/AUTO DIFF WBC Returned 08/29/2016 12:00 AM COMPREHEN METABOLIC PANEL Returned Results Summary Data and Description Results 08/29/2016 3:45 PM WBC 9.0 RBC 4.26 HGB 13.20 g/dLHCT 40.30 %MCV 95.0 fLMCH 31.0 pgMCHC 32.80 g/dLRDW SD 46 RDW CV 13.20 %MPV 8.60 fLPLT 602 NRBC# 0.00 NRBC % 0.0 %NEUT 49.90 %%LYMP 40.40 %%MONO 6.60 %%EOS 2.10 %%BASO 0.80 %#NEUT 4.49 # LYMP 3.64 #MONO 0.59 #EOS 0.19 #BASO 0.07 MANUAL DIFF NOT IND GLUCOSE 85.0 mg/ dLSODIUM 139.0 mmol/LPOTASSIUM 4.0 mmol/LCHLORIDE 101.0 mmol/LCO2 27.0 mmol/ LBUN 12.0 mg/dLCREATININE 0.80 mg/dLSGOT/AST 16.0 IU/LSGPT/ALT 18.0 IU/LALK PHOS 81.0 IU/LTOTAL PROTEIN 7.60 g/dLALBUMIN 4.60 g/dLTOTAL BILI 0.20 mg/ dLCALCIUM 10.20 mg/dLAGE 56 GFR NonAA 74 GFR AA 90 eGFR >60 mL/min/1.73meGFR AA* >60 History Of Immunizations Not available. History of Past Illness Name Date of Onset Comments Postviral fatigue syndrome Aug 29 2016 2:48PM Recurrent falls Aug 29 2016 2:48PM Concussion, without loss of consciousness, initial encounter Aug 29 2016 2: 48PM Payers Insurance Name Company Name Plan Name Plan Number Policy Number Policy Group Number Start Date Medicare RHC Medicare RHC [id number] N/A [employer] - [facility] - [place] State Plan [facility] [place] State Plan [id number] N/A [employer] [place] State Plan [facility] [id number] N/A Medicare Part A Medicare - Lab/Xray [id number] N/A Medicare Part B Medicare Of [place] [id number] N/A History of Encounters Visit Date Visit Type Provider 08/29/[address] Frank Alcaraz MD 05/21/2016 [facility] Renzo Stout MD 05/16/2016 [facility] Ajith Griffin MD 06/12/2015 [facility] Tennille Geronimo MD 12/21/2014 [facility] Tennille Geronimo MD 03/07/2014 [facility] Momo Lua MD 03/05/2014 [facility] Umesh Gavin MD 03/05/2014 [facility] Tennille Geronimo MD
--- OUTSIDE RECORDS SUMMARY | 2017-10-02 16:49 | XMS REPORT ---
Author Author MIMI VELIZ [facility] Address [address] [place] [address] Care Team Providers Care Tagman Name Role Phone MIMI VELIZ Unavailable PROBLEMS Type Condition ICD9-CM Code [id number] Code Onset Dates Condition Status SNOMED Code Problem Moderate episode of recurrent major depressive disorder F33.1 Active 989145670 Problem Toenail fungus B35.1 Active 194059955 Problem Hyperlipidemia, unspecified hyperlipidemia type E78.5 Active 46764904 Problem Type 2 diabetes mellitus without complication, without long-term current use of insulin E11.9 Active 978830809 Problem Seasonal allergic rhinitis, unspecified allergic rhinitis trigger J30.2 Active 697657345 Problem Bunion of great toe of right foot M21.611 Active 895252115 Problem Seizure disorder G40.909 Active 751495273 Problem History of CVA (cerebrovascular accident) Z86.73 Active 078461434 Problem Anxiety F41.9 Active 59099871 Problem Hypothyroidism (acquired) E03.9 Active 331835892 ALLERGIES No Information SOCIAL HISTORY Never Assessed [...]
--- OUTSIDE RECORDS SUMMARY | 2017-10-02 16:50 | XMS REPORT ---
Author Author MIMI VELIZ Organization [facility] Address [address] [place] [address] Care Team Providers Care Client Support Representative Name Role Phone MIMI VELIZ Unavailable PROBLEMS Type Condition ICD9-CM Code [id number] Code Onset Dates Condition Status SNOMED Code Problem Moderate episode of recurrent major depressive disorder F33.1 Active 708795411 Problem Toenail fungus B35.1 Active 519639863 Problem Hyperlipidemia, unspecified hyperlipidemia type E78.5 Active 27972095 Problem Type 2 diabetes mellitus without complication, without long-term current use of insulin E11.9 Active 449605413 Problem Seasonal allergic rhinitis, unspecified allergic rhinitis trigger J30.2 Active 966502399 Problem Bunion of great toe of right foot M21.611 Active 500309450 Problem Seizure disorder G40.909 Active 172098676 Problem History of CVA (cerebrovascular accident) Z86.73 Active 289907267 Problem Anxiety F41.9 Active 68708947 Problem Hypothyroidism (acquired) E03.9 Active 570775731 ALLERGIES No Information SOCIAL HISTORY Never Assessed PLAN OF CARE VITAL SIGNS MEDICATIONS Medication Instructions Dosage Frequency Start Date End Date Duration Status Xanax 1 MG Orally 3 times a day 1 tablet 8h 28 days Active RESULTS No Results PROCEDURES No Known [...]
--- OUTSIDE RECORDS SUMMARY | 2017-10-02 16:50 | XMS REPORT | CCD ---
Author Author LENIN QUAN Organization Unknown Address [address] [place], [place] [id number] Care Team Providers Care Needleworker Name Role Phone ONEIDA GARCIAS DO Attphys GARCIASONEIDA DO Prisurg Vital Signs Unknown or Not Available. Allergies Allergy Code Allergy Type Reaction Status No Known Allergies 0 No known allergies Active Procedures Procedure Code Procedure Type Date ABDOMEN ACUTE SERIES 5266382 SNOMED CT 06/12/2015 ^UA AUTO DIPSTICK ONLY 971906055 SNOMED CT 06/12/2015 ^CBC W/AUTO DIFF 7443655 SNOMED CT 06/12/2015 RAPID DRUG SCREEN 845318017 SNOMED CT 06/12/2015 UA ROUTINE C&S IF IND 299203329 SNOMED CT 06/12/2015 C REACTIVE PROTEIN 42460680 SNOMED CT 06/12/[address] 06/12/2015 COMPREHENSIVE METABOLIC PANEL 400956334 SNOMED CT 2014 CBC W/ AUTO DIFF (RFLX MAN DIFF IF IND) 7321927 SNOMED CT 06/12/2015 History of Immunizations Immunization Code Date MMR 02/11/2001 MMR 04/02/2001 Problems Problem Code Start Date Resolved Date Status Anemia 239760509 03/06/2014 Active GI bleed 42220096 03/06/2014 Active Results COMPREHENSIVE METABOLIC PANEL - Collect Date/Time: 06/12/2015 15:35 Test Name Code Test Result Test Units Test Ref Range GLUCOSE 2345-7 121 MG/DL L=70 H=100 SODIUM 2951-2 141 MEQ/L L=135 H=148 POTASSIUM 2823-3 3.2 MEQ/L L=3.5 H=5.3 CHLORIDE 2075-0 103 MEQ/L L=96 H=110 CO2 2028-9 24 MEQ/L L=22 H=29 BUN 3094-0 9 MG/DL L=8 H=22 CREATININE 2160-0 0.8 MG/DL L=0.6 H=1.6 SGOT/AST 1920-8 15 IU/L L=10 H=40 SGPT/ALT 1742-6 11 IU/L L=8 H=54 ALK PHOS 6768-6 83 IU/L L=35 H=115 TOTAL PROTEIN 2885-2 7.0 G/DL L=5.5 H=8.5 ALBUMIN 1751-7 4.4 G/DL L=3.1 H=5.4 TOTAL BILI 1975-2 0.7 MG/DL L=0.0 H=1.5 CALCIUM 52839-6 10.0 MG/DL L=8.2 H=10.6 AGE 54 yrs GFR NonAA 75 GFR AA 91 eGFR >60 N/A eGFR AA* >60 N/A LIPASE - Collect Date/Time: 06/12/2015 15:35 Test Name Code Test Result Test Units Test Ref Range LIPASE 3040-3 20 U/L L=8 H=78 RAPID DRUG SCREEN - Collect Date/Time: 06/12/2015 17:10 Test Name Code Test Result Test Units Test Ref Range Phencyclidine (PCP) NEGATIVE N/A NEG: < 25 [...] MAN DIFF IF IND) - Collect Date/Time: 06/12/2015 15:35 Test Name Code Test Result Test Units Test Ref Range WBC 69921-6 5.7 TH/CMM L=4.5 H=10.8 RBC 789-8 4.21 ML/CMM L=4.20 H=5.40 HGB 718-7 13.4 G/DL L=12.0 H=16.0 HCT 4544-3 39.8 % L=37.0 H=47.0 MCV 95 FL L=81 H=99 MCH 31.8 PG L=27.0 H=33.0 MCHC 33.7 G/DL L=31.0 H=36.0 RDW SD 47 FL L=36 H=50 RDW CV 13.4 % L=0.0 H=14.8 MPV 9.4 FL L=9.3 H=12.5 PLT 777-3 347 TH/CMM L=130 H=440 NRBC# 0.00 TH/CMM L=0.00 H=0.00 NRBC% 0.0 /100WBC L=0.0 H=2.0 %NEUT 59.5 % %LYMP 35.4 % %MONO 4.4 % %EOS 0.2 % %BASO 0.5 % #NEUT 3.38 TH/CMM L=2.10 H=8.20 #LYMP 2.01 TH/CMM L=0.90 H=5.20 #MONO 0.25 TH/CMM L=0.16 H=1.00 #EOS 0.01 TH/CMM L=0.00 H=0.80 #BASO 0.03 TH/CMM L=0.00 H=0.20 MANUAL DIFF NOT IND N/A UA ROUTINE C&S IF IND - Collect Date/Time: 06/12/2015 17:05 Test Name Code Test Result Test Units Test Ref Range COLOR YELLOW N/A NL: YELLOW APPEARANCE CLEAR N/A NL: CLEAR SPEC GRAV 1.020 N/A NL: 1.002 - 1.022 pH 6.0 N/A NL: 5 - 9 PROTEIN NEGATIVE N/A NL: NEGATIVE mg/dl GLUCOSE NEGATIVE N/A NL: NEGATIVE mg/dl KETONE NEGATIVE N/A NL: NEGATIVE mg/dl BILIRUBIN NEGATIVE N/A NL: NEGATIVE BLOOD NEGATIVE N/A NL: NEGATIVE NITRITE NEGATIVE N/A NL: NEGATIVE LEUK SCREEN NEGATIVE N/A NL: NEGATIVE MICRO INDICATED? NOT INDICATED N/A C REACTIVE PROTEIN - Collect Date/Time: 06/12/2015 15:35 Test Name Code Test Result Test Units Test Ref Range C REACTIVE PROTEIN 1988-5 <0.5 MG/DL L=0.0 H= 1.0 Active Medications Medication Code Dose Units Frequency Route Modification Start Date/Time Alprazolam 0.25MG Oral Tablet 981974 0.5 MILLIGRAMS NEEDED EVERY 8 HR BY MOUTH 03/09/2014 08:17 Prescription Detail 0.5 MILLIGRAMS BY MOUTH NEEDED EVERY 8 HR Atorvastatin Calcium 40MG Oral Tablet 007521 40 MILLIGRAMS DAILY ORAL 03/09/2014 08:16 Prescription Detail 40 MILLIGRAMS ORAL DAILY Baclofen 10MG Oral Tablet 088379 5 MILLIGRAMS THREE TIMES A DAY BY MOUTH 03/09/2014 08:16 Prescription Detail 5 MILLIGRAMS BY MOUTH THREE TIMES A DAY Coumadin 2MG Oral Tablet 841341 1 TABLET DAILY BY MOUTH 03/09/2014 08:16 Prescription Detail 1 TABLET BY MOUTH DAILY Cymbalta 60MG Oral Capsule, Delayed Release 644295 60 MILLIGRAMS DAILY ORAL 03/09/2014 08:16 Prescription Detail 60 MILLIGRAMS ORAL DAILY Hydrocodone Bitartrate and Acetaminophen 325MG-5MG Oral Tablet 530455 1 TABLET NEEDED EVERY 4 HR BY MOUTH 03/09/2014 08:16 Prescription Detail 1 TABLET BY MOUTH NEEDED EVERY 4 HR Metformin 500MG Oral Tablet 918573 500 MILLIGRAMS TWO TIMES A DAY ORAL 03/09/2014 08:16 Prescription Detail 500 MILLIGRAMS ORAL TWO TIMES A DAY Seroquel 100MG Oral Tablet 418143 100 MILLIGRAMS BEDTIME BY MOUTH 03/09/2014 08:16 Prescription Detail 100 MILLIGRAMS BY MOUTH BEDTIME Sucralfate 1GM/10ML Oral Suspension 808848 1 GRAM BEFORE MEALS AND BED BY MOUTH 03/09/2014 08:16 Prescription Detail 1 GRAM BY MOUTH BEFORE MEALS AND BED Trazodone 50MG Oral Tablet 273253 50 MILLIGRAMS AT BEDTIME ORAL 03/09/2014 08:16 Prescription Detail 50 MILLIGRAMS ORAL AT BEDTIME Medications Administered During Visit Unknown or Not Available. Encounters Encounter Diagnosis Diagnosis Code Start Date Unspecified convulsions R569 06/12/2015 Social History Smoking Status Code Start Date End Date Current every day smoker 671929420 Patient Decision Aids Unknown or Not Available. Discharge Instructions You were admitted to [facility] on 06/12/2015 with a principal diagnosis of Unspecified convulsions. You were discharged from [facility] on 06/12/2015. Should you have any questions prior to discharge, please contact a member of your healthcare team. If you have left the hospital and have any questions, please contact your primary care physician. Chief Complaint and Reason For Visit Chief Complaint Date of Onset SEIZURE Function Status Unknown or Not Available. Plan of Care Unknown or Not Available. Referral/Transition of Care Unknown or Not Available.
--- OUTSIDE RECORDS SUMMARY | 2017-10-02 16:50 | XMS REPORT ---
Author Author MIMI VELIZ [facility] Address [address] [place] [address] Care Team Providers Care Shredded Filler Cigar Maker Machine Name Role Phone MIMI VELIZ Unavailable PROBLEMS Type Condition ICD9-CM Code [id number] Code Onset Dates Condition Status SNOMED Code Problem Moderate episode of recurrent major depressive disorder F33.1 Active 837813343 Problem Toenail fungus B35.1 Active 563548408 Problem Hyperlipidemia, unspecified hyperlipidemia type E78.5 Active 81548753 Problem Type 2 diabetes mellitus without complication, without long-term current use of insulin E11.9 Active 857662782 Problem Seasonal allergic rhinitis, unspecified allergic rhinitis trigger J30.2 Active 358824182 Problem Bunion of great toe of right foot M21.611 Active 961094690 Problem Seizure disorder G40.909 Active 213503932 Problem History of CVA (cerebrovascular accident) Z86.73 Active 502800665 Problem Anxiety F41.9 Active 79926056 Problem Hypothyroidism (acquired) E03.9 Active 484054758 ALLERGIES No Information SOCIAL HISTORY Never Assessed [...]
--- OUTSIDE RECORDS SUMMARY | 2017-10-02 16:50 | XMS REPORT ---
Author Author MIMI VELIZ Organization [facility] Address [address] [place] [address] Care Team Providers Care Cdl Instructor Name Role Phone MIMI VELIZ Unavailable PROBLEMS Type Condition ICD9-CM Code DUF61-BD Code Onset Dates Condition Status SNOMED Code Problem Moderate episode of recurrent major depressive disorder F33.1 Active 781738690 Problem Toenail fungus B35.1 Active 852631840 Problem Hyperlipidemia, unspecified hyperlipidemia type E78.5 Active 40423202 Problem Type 2 diabetes mellitus without complication, without long-term current use of insulin E11.9 Active 102260224 Problem Seasonal allergic rhinitis, unspecified allergic rhinitis trigger J30.2 Active 083042678 Problem Bunion of great toe of right foot M21.611 Active 135241884 Problem Seizure disorder G40.909 Active 356750300 Problem History of CVA (cerebrovascular accident) Z86.73 Active 111089720 Problem Anxiety F41.9 Active 34442036 Problem Hypothyroidism (acquired) E03.9 Active 798695072 ALLERGIES No Information SOCIAL HISTORY Never Assessed PLAN OF CARE VITAL SIGNS MEDICATIONS Medication Instructions Dosage Frequency Start Date End Date Duration Status Xanax 1 MG Orally 3 times a day May not fill till 12/05/16 1 tablet 28 days Active RESULTS No Results PROCEDURES [...]
--- OUTSIDE RECORDS SUMMARY | 2017-10-02 16:50 | XMS REPORT ---
Author Author MIMI VELIZ Organization [facility] Address [address] [place] [address] Care Team Providers Care Appliance Sales Associate Name Role Phone MIMI VELIZ Unavailable PROBLEMS Type Condition ICD9-CM Code NYR83-DA Code Onset Dates Condition Status SNOMED Code Problem Moderate episode of recurrent major depressive disorder F33.1 Active 944782277 Problem Toenail fungus B35.1 Active 596082297 Problem Hyperlipidemia, unspecified hyperlipidemia type E78.5 Active 74160465 Problem Type 2 diabetes mellitus without complication, without long-term current use of insulin E11.9 Active 392125632 Problem Seasonal allergic rhinitis, unspecified allergic rhinitis trigger J30.2 Active 462256023 Problem Bunion of great toe of right foot M21.611 Active 332786695 Problem Seizure disorder G40.909 Active 472573728 Problem History of CVA (cerebrovascular accident) Z86.73 Active 621772678 Problem Anxiety F41.9 Active 84936551 Problem Hypothyroidism (acquired) E03.9 Active 907440551 ALLERGIES No Information SOCIAL HISTORY Never Assessed PLAN OF CARE VITAL SIGNS MEDICATIONS Medication Instructions Dosage Frequency Start Date End Date Duration Status Levothyroxine Sodium 50 MCG Orally Once a day 1 tablet on an empty stomach in the morning 24h Oct, Active RESULTS No Results PROCEDURES No Known [...]
--- OUTSIDE RECORDS SUMMARY | 2017-10-02 16:50 | XMS REPORT ---
Author Author MIMI VELIZ [facility] Address [address] [place] [address] Care Team Providers Care Retail Loss Prevention Officer Name Role Phone MIMI VELIZ Unavailable PROBLEMS Type Condition ICD9-CM Code WIP41-EH Code Onset Dates Condition Status SNOMED Code Problem Moderate episode of recurrent major depressive disorder F33.1 Active 805508572 Problem Toenail fungus B35.1 Active 809163874 Problem Hyperlipidemia, unspecified hyperlipidemia type E78.5 Active 45018275 Problem Type 2 diabetes mellitus without complication, without long-term current use of insulin E11.9 Active 960693625 Problem Seasonal allergic rhinitis, unspecified allergic rhinitis trigger J30.2 Active 706724977 Problem Bunion of great toe of right foot M21.611 Active 268244359 Problem Seizure disorder G40.909 Active 787219872 Problem History of CVA (cerebrovascular accident) Z86.73 Active 673487410 Problem Anxiety F41.9 Active 90147911 Problem Hypothyroidism (acquired) E03.9 Active 177316555 ALLERGIES No Known Allergies SOCIAL HISTORY Never Assessed PLAN OF CARE Activity Details Follow Up 4 Weeks Reason:pain mgmt VITAL SIGNS Height 64.0 in 2016-10-30 Weight 152.2 lbs 2016-10-30 Temperature 98.7 degrees Fahrenheit 2016-10-30 Heart Rate 80 bpm 2016-10-30 Respiratory Rate 20 2016-10-30 BMI 26.12 kg/m2 2016-10-30 Blood pressure systolic 124 mmHg 2016-10-30 Blood pressure diastolic 78 mmHg 2016-10-30 MEDICATIONS Medication Instructions Dosage Frequency Start Date End Date Duration Status Lamisil 250 MG Orally Once a day 1 tablet 24h Active Lipitor 40 MG Orally Once a day 1 tablet 24h Active Keppra 500 mg Orally twice a day 1 tablet 12h Active Hydrocodone-Acetaminophen 10-325 MG Orally 3 times a day 1 tablet as needed 8h Active Metformin HCl 500 MG Orally Twice a day 1 tablet with meals 12h Active Bisoprolol-Hydrochlorothiazide 5-6.25 MG Orally Once a day 1 tablet 24h Active Cymbalta 60 MG Orally Once a day 1 capsule 24h Active Omeprazole 20 MG Orally Once a day 1 capsule 24h Active Prilosec 20 MG Orally Once a day 1 capsule 24h Active Xanax 1 MG Orally 3-4 times a day prn 1 tablet Active Furosemide 80 MG Orally Once a day as needed 1 tablet take for 3 days Active Aspirin 325 MG Orally Once a day 1 tablet 24h Active Levothyroxine Sodium 100 MCG Orally Once a day 1 tablet on an empty stomach in the morning 24h Active Cymbalta 30 MG Orally Once a day 1 capsule 24h Active RESULTS No Results PROCEDURES Procedure Date Ordered Result Body Site [facility] VISIT ESTABLISHED PATIENT October 30, 2016 IMMUNIZATIONS No Known Immunizations MEDICAL (GENERAL) [...]
--- OUTSIDE RECORDS SUMMARY | 2017-10-02 16:50 | XMS REPORT ---
Author Author MIMI VELIZ [facility] Address [address] [place] [address] Care Team Providers Care Digital Advertising Specialist Name Role Phone MIMI VELIZ Unavailable PROBLEMS Type Condition ICD9-CM Code [id number] Code Onset Dates Condition Status SNOMED Code Problem Moderate episode of recurrent major depressive disorder F33.1 Active 725525284 Problem Toenail fungus B35.1 Active 240734973 Problem Hyperlipidemia, unspecified hyperlipidemia type E78.5 Active 03412216 Problem Type 2 diabetes mellitus without complication, without long-term current use of insulin E11.9 Active 187586447 Problem Seasonal allergic rhinitis, unspecified allergic rhinitis trigger J30.2 Active 406718423 Problem Bunion of great toe of right foot M21.611 Active 806365949 Problem Seizure disorder G40.909 Active 704365155 Problem History of CVA (cerebrovascular accident) Z86.73 Active 636012075 Problem Anxiety F41.9 Active 55978582 Problem Hypothyroidism (acquired) E03.9 Active 893516095 ALLERGIES No Information SOCIAL HISTORY Never Assessed [...]
--- OUTSIDE RECORDS SUMMARY | 2017-10-02 16:50 | XMS REPORT ---
Author Author MIMI VELIZ Organization [facility] Address [address] [place] [address] Care Team Providers Care Bench Assembler Battery Name Role Phone MIMI VELIZ Unavailable PROBLEMS Type Condition ICD9-CM Code WBL05-FV Code Onset Dates Condition Status SNOMED Code Problem Moderate episode of recurrent major depressive disorder F33.1 Active 726812983 Problem Toenail fungus B35.1 Active 642251831 Problem Hyperlipidemia, unspecified hyperlipidemia type E78.5 Active 05812273 Problem Type 2 diabetes mellitus without complication, without long-term current use of insulin E11.9 Active 256724745 Problem Seasonal allergic rhinitis, unspecified allergic rhinitis trigger J30.2 Active 960841110 Problem Bunion of great toe of right foot M21.611 Active 335085914 Problem Seizure disorder G40.909 Active 148157237 Problem History of CVA (cerebrovascular accident) Z86.73 Active 586872910 Problem Anxiety F41.9 Active 95328824 Problem Hypothyroidism (acquired) E03.9 Active 133691734 ALLERGIES No Information SOCIAL HISTORY Never Assessed PLAN OF CARE VITAL SIGNS MEDICATIONS Medication Instructions Dosage Frequency Start Date End Date Duration Status HydrOXYzine HCl 25 MG Orally at bedtime 1 tablet as needed December, 30 day(s) Active RESULTS No Results PROCEDURES No Known [...]
--- OUTSIDE RECORDS SUMMARY | 2017-10-02 16:50 | XMS REPORT ---
Author Author Golden Barron [facility] Address [address] [place], [place] [address] Care Team Providers Care Baked And Graphite Inspector Name Role Phone Golden Barron PCP Allergies and Adverse Reactions Name Reaction Notes No known allergies Plan of Treatment Not available. Medications Active Name Start Date Estimated Completion Date SIG Comments Cymbalta 60 mg oral capsule,delayed release(DR/EC) take 1 capsule (60 mg ) by oral route once daily levothyroxine 25 mcg oral tablet take 1 tablet (25 mcg) by oral route once daily Xanax 1 mg oral tablet take 1 tablet (1 mg) by oral route 3 times per day diclofenac sodium 75 mg oral tablet,delayed release (DR/EC) take 1 tablet (75 mg) by oral route 2 times per day Prilosec OTC 20 mg oral tablet,delayed release (DR/EC) take 1 tablet by oral route daily metformin 500 mg oral tablet take 1 tablet (500 mg) by oral route per day with morning levetiracetam 500 mg oral tablet take 1 tablet (500 mg) by oral route 2 times per day Lamisil 250 mg oral tablet take 1 tablet (250 mg) by oral route once daily bisoprolol-hydrochlorothiazide 5-6.25 mg oral tablet take 1 tablet by oral route once daily atorvastatin 40 mg oral tablet take 1 tablet (40 mg) by oral route once daily aspirin 325 mg oral tablet take 1 tablet (325 mg) by oral route once daily multivitamin oral tablet take 1 tablet by oral route daily Right MFC shoulder orthosis 09/10/2017 Wear brace for right sided post stroke shoulder subluxation Botox 100 unit injection recon soln 09/10/2017 Inject 100 units in clinic for spasticity. Problem List Not available. Vital Signs Date Time BP-Sys(mm[Hg] BP-Pauly(mm[Hg]) HR(bpm) RR(rpm) Temp WT HT HC BMI BSA BMI Percentile O2 Sat(%) 09/10/2017 3:40:00 PM 140 mmHg 60 mmHg 69 bpm 97.6 F 154.375 lbs 67 in 24.18 kg/m2 1.82 m2 99 % 08/29/2016 2:44:00 PM 112 mmHg 72 mmHg 79 bpm 18 rpm 96.1 F 152.125 lbs 67 in 23.8259 kg/m 1.8061 m 97 % Social History Name Description Comments Alcohol Never Tobacco Current every day smoker History of Procedures Date Ordered Description Order Status 08/29/2016 12:00 AM COMPLETE CBC W/AUTO DIFF WBC Returned 08/29/2016 12:00 AM COMPREHEN METABOLIC PANEL Returned Results Summary Not available. History Of Immunizations Not available. 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 Recurrent falls Aug 29 2016 2:48PM Concussion, without loss of consciousness, initial encounter Aug 29 2016 2: 48PM Shoulder subluxation, right Sep 10 2017 3:51PM Hemiplegia affecting right dominant side Sep 10 2017 3:51PM Chronic pain syndrome Sep 10 2017 3:51PM Payers Insurance Name Company Name Plan Name Plan Number Policy Number Policy Group Number Start Date Medicare Part B Medicare Of [place] [id number] N/A [facility] Plan [id number] N/A Medicare RHC Medicare RHC [id number] N/A Medicare Part A Medicare - Lab/Xray [id number] N/A [employer] [place] [employer] [place] [id number] N/A History of Encounters Visit Date Visit Type Provider 09/10/2017 Office visit Golden Barron DO 04/22/2017 [facility] Geronimo MD 08/29/[address] Frank Alcaraz MD 05/21/2016 [facility] Renzo Stout MD 05/16/2016 [facility] Ajith Griffin MD 06/12/2015 [facility] [place] Geronimo MD 12/21/2014 [facility] Geron[facility] MD 03/07/2014 [facility] Momo Lua MD 03/05/2014 [facility] Umesh Gavin MD 03/05/2014 [facility] [place] Geronimo MD
--- OUTSIDE RECORDS SUMMARY | 2017-10-02 16:50 | XMS REPORT ---
Author Author MIMI VELIZ Organization [facility] Address [address] [place] [address] Care Team Providers Care Skin Lifter Bacon Name Role Phone MIMI VELIZ Unavailable PROBLEMS Type Condition ICD9-CM Code GDL70-YN Code Onset Dates Condition Status SNOMED Code Problem Moderate episode of recurrent major depressive disorder F33.1 Active 634435314 Problem Toenail fungus B35.1 Active 099961016 Problem Hyperlipidemia, unspecified hyperlipidemia type E78.5 Active 11100772 Problem Type 2 diabetes mellitus without complication, without long-term current use of insulin E11.9 Active 517868674 Problem Seasonal allergic rhinitis, unspecified allergic rhinitis trigger J30.2 Active 716971821 Problem Bunion of great toe of right foot M21.611 Active 383747524 Problem Seizure disorder G40.909 Active 466730812 Problem History of CVA (cerebrovascular accident) Z86.73 Active 110975822 Problem Anxiety F41.9 Active 60283426 Problem Hypothyroidism (acquired) E03.9 Active 290816731 ALLERGIES No Information SOCIAL HISTORY Never Assessed PLAN OF CARE VITAL SIGNS MEDICATIONS Medication Instructions Dosage Frequency Start Date End Date Duration Status Hydrocodone-Acetaminophen 10-325 MG Orally 3 times a day 1 tablet as needed 8h 28 days Active RESULTS No Results [...]
--- OUTSIDE RECORDS SUMMARY | 2017-10-02 16:50 | XMS REPORT | CCD ---
Author Author LENIN QUAN Organization Unknown Address [address] [place] [address] Care Team Providers Care Monotype Mechanic Name Role Phone RON REINOSO MD Attphys RON REINOSO MD Prisurg Allergies Allergy Code Allergy Type Reaction Status No Known Drug Allergies 0 Drug allergy Active Active Medications Medication Code Dose Units Frequency Route Modification Start Date/Time HYDROcodone bitartrate-acetaminophen 10MG-325MG Oral Tablet 045546 1 TABLET NEEDED EVERY 4 HR BY MOUTH 05/28/2016 15:51 Prescription Detail 1 TABLET BY MOUTH NEEDED EVERY 4 HR Isopto Tears 0.5% Ophthalmic Solution 341370 1 DROP NEEDED BOTH EYES 05/28/2016 15:51 Prescription Detail 1 DROP BOTH EYES NEEDED levETIRAcetam 500MG Oral Tablet 057248 500 MILLIGRAMS TWO TIMES A DAY BY MOUTH 05/28/2016 15:51 Prescription Detail 500 MILLIGRAMS BY MOUTH TWO TIMES A DAY traMADol HCl 50MG Oral Tablet 260684 50 MILLIGRAMS NEEDED EVERY 6 HR BY MOUTH 05/28/2016 15:51 Prescription Detail 50 MILLIGRAMS BY MOUTH NEEDED EVERY 6 HR Aspir 81 81MG Oral Tablet, Enteric Coated 043377 1 TABLET DAILY BY MOUTH 05/21/2016 10:23 Prescription Detail 1 TABLET BY MOUTH DAILY Bisoprolol Fumarate/hydroCHLOROthiazide 5MG-6.25MG Oral Tablet 133676 1 EACH DAILY ORAL 05/21/2016 10:23 Prescription Detail 1 EACH ORAL DAILY DULoxetine HCl 60MG Oral Capsule, Delayed Release 134103 60 MILLIGRAMS DAILY ORAL 05/21/2016 10:23 Prescription Detail 60 MILLIGRAMS ORAL DAILY Levothyroxine 100MCG Oral Tablet 501404 100 MCG DAILY ORAL 05/21/2016 10:23 Prescription Detail 100 MCG ORAL DAILY Multivitamin Oral Tablet 5194101 1 EACH DAILY ORAL 05/21/2016 10:23 Prescription Detail 1 EACH ORAL DAILY Omeprazole 20MG Oral Capsule, Delayed Release 486062 20 MILLIGRAMS DAILY ORAL 05/21/2016 10:23 Prescription Detail 20 MILLIGRAMS ORAL DAILY Mapap Extra Strength 500MG Oral Tablet 044084 500 MILLIGRAMS NEEDED BY MOUTH 05/21/2016 10:22 Prescription Detail 500 MILLIGRAMS BY MOUTH NEEDED Tricor 48MG Oral Tablet 756212 48 MILLIGRAMS DAILY BY MOUTH 05/21/2016 10:22 Prescription Detail 48 MILLIGRAMS BY MOUTH DAILY Alprazolam 0.25MG Oral Tablet 938094 0.5 MILLIGRAMS NEEDED EVERY 8 HR BY MOUTH 03/09/2014 08:17 Prescription Detail 0.5 MILLIGRAMS BY MOUTH NEEDED EVERY 8 HR Atorvastatin Calcium 40MG Oral Tablet 008509 40 MILLIGRAMS DAILY ORAL 03/09/2014 08:16 Prescription Detail 40 MILLIGRAMS ORAL DAILY Metformin 500MG Oral Tablet 217660 500 MILLIGRAMS TWO TIMES A DAY ORAL 03/09/2014 08:16 Prescription Detail 500 MILLIGRAMS ORAL TWO TIMES A DAY Problems Problem Code Start Date Resolved Date Status TIA 760405345 05/16/2016 Active Aphasia 17669324 05/16/2016 Active Seizures 91698448 05/16/2016 Active Procedures Procedure Code Procedure Type Date COMPREHENSIVE METABOLIC PANEL [id number] [facility] 2015 CBC W/ AUTO DIFF (RFLX MAN DIFF IF IND) [id number] [facility] 07/20/2016 UA ROUTINE C&S IF IND [id number] [facility] 07/20/2016 RAPID DRUG SCREEN [id number] [facility] 07/20/2016 ^CBC W/AUTO DIFF [id number] [facility] 07/20/2016 ^UA AUTO DIPSTICK ONLY [id number] [facility] 07/20/2016 Results COMPREHENSIVE METABOLIC PANEL - Collect Date/Time: 07/20/2016 09:20 Test Name Code Test Result Test Units Test Ref Range GLUCOSE 2345-7 93 MG/DL L=70 H=100 SODIUM 2951-2 141 MEQ/L L=135 H=148 POTASSIUM 2823-3 3.8 MEQ/L L=3.5 H=5.3 CHLORIDE 2075-0 108 MEQ/L L=96 H=110 CO2 2028-9 20 MEQ/L L=22 H=29 BUN 3094-0 7 MG/DL L=8 H=22 CREATININE 2160-0 0.8 MG/DL L=0.6 H=1.6 SGOT/AST 1920-8 17 IU/L L=10 H=40 SGPT/ALT 1742-6 12 IU/L L=8 H=54 ALK PHOS 6768-6 107 IU/L L=35 H=115 TOTAL PROTEIN 2885-2 6.1 G/DL L=5.5 H=8.5 ALBUMIN 1751-7 4.0 G/DL L=3.1 H=5.4 TOTAL BILI 1975-2 0.5 MG/DL L=0.0 H=1.5 CALCIUM 64642-4 9.3 MG/DL L=8.2 H=10.6 AGE 55 yrs GFR NonAA 75 GFR AA 91 eGFR >60 N/A eGFR AA* >60 N/A RAPID DRUG SCREEN - Collect Date/Time: 07/20/2016 09:35 Test Name Code Test Result Test Units [...] NEG: < 300 ng/ ml Tricyclic Antidepres NEGATIVE N/A NEG: < 300 ng/ ml Methadone NEGATIVE N/A NEG: < 300 ng/ml Barbiturates NEGATIVE N/A NEG: < 200 ng/ml Oxycodone NEGATIVE N/A NEG: < 100 ng/ml Propoxyphene (PPX) NEGATIVE N/A NEG: < 300 ng/ ml CBC W/ AUTO DIFF (RFLX MAN DIFF IF IND) - Collect Date/Time: 07/20/2016 09:20 Test Name Code Test Result Test Units Test Ref Range WBC 92907-4 7.3 TH/CMM L=4.5 H=10.8 RBC 789-8 4.13 ML/CMM L=4.20 H=5.40 HGB 718-7 12.8 G/DL L=12.0 H=16.0 HCT 4544-3 39.8 % L=37.0 H=47.0 MCV 96 FL L=81 H=99 MCH 31.0 PG L=27.0 H=33.0 MCHC 32.2 G/DL L=31.0 H=36.0 RDW SD 46 FL L=36 H=50 RDW CV 13.1 % L=0.0 H=14.8 MPV 9.5 FL L=9.3 H=12.5 PLT 777-3 315 TH/CMM L=130 H=440 NRBC# 0.00 TH/CMM L=0.00 H=0.00 NRBC% 0.0 /100WBC L=0.0 H=2.0 %NEUT 65.4 % %LYMP 26.8 % %MONO 5.1 % %EOS 1.6 % %BASO 0.8 % #NEUT 4.77 TH/CMM L=2.10 H=8.20 #LYMP 1.96 TH/CMM L=0.90 H=5.20 #MONO 0.37 TH/CMM L=0.16 H=1.00 #EOS 0.12 TH/CMM L=0.00 H=0.80 #BASO 0.06 TH/CMM L=0.00 H=0.20 MANUAL DIFF NOT IND N/A UA ROUTINE C&S IF IND - Collect Date/Time: 07/20/2016 09:35 Test Name Code Test Result Test Units Test Ref Range COLOR YELLOW N/A NL: YELLOW APPEARANCE HAZY N/A NL: CLEAR SPEC GRAV 1.025 N/A NL: 1.002 - 1.022 pH 5.5 N/A NL: 5 - 9 PROTEIN NEGATIVE N/A NL: NEGATIVE mg/dl GLUCOSE NEGATIVE N/A NL: NEGATIVE mg/dl KETONE NEGATIVE N/A NL: NEGATIVE mg/dl BILIRUBIN NEGATIVE N/A NL: NEGATIVE BLOOD NEGATIVE N/A NL: NEGATIVE NITRITE NEGATIVE N/A NL: NEGATIVE LEUK SCREEN NEGATIVE N/A NL: NEGATIVE MICRO INDICATED? NOT INDICATED N/A Function Status Unknown or Not Available. History of Immunizations Immunization Code Date MMR 02/11/2001 MMR 04/02/2001 pneumococcal, unspecified formulation 109 08/17/2014 Pneumococcal conjugate PCV 13 133 07/23/2015 Influenza, seasonal, injectable, preservative free 140 2014 influenza, injectable, quadrivalent, preservative free 150 2015 Plan of Treatment Unknown or Not Available. Social History Smoking Status Code Start Date End Date Current every day smoker 786303512 Vital Signs Unknown or Not Available. Function Status Unknown or Not Available. Goals Unknown or Not Available. ASSESSMENTS Unknown or Not Available. Health Concerns Section Unknown or Not Available.
--- OUTSIDE RECORDS SUMMARY | 2017-10-02 16:50 | XMS REPORT ---
Author Author MIMI VELIZ [facility] Address [address] [place] [address] Care Team Providers Care Flange Machine Operator Name Role Phone MIMI VELIZ Unavailable PROBLEMS Type Condition ICD9-CM Code [id number] Code Onset Dates Condition Status SNOMED Code Problem Moderate episode of recurrent major depressive disorder F33.1 Active 412102336 Problem Toenail fungus B35.1 Active 252827735 Problem Hyperlipidemia, unspecified hyperlipidemia type E78.5 Active 93307281 Problem Type 2 diabetes mellitus without complication, without long-term current use of insulin E11.9 Active 785305649 Problem Seasonal allergic rhinitis, unspecified allergic rhinitis trigger J30.2 Active 445030538 Problem Bunion of great toe of right foot M21.611 Active 189008219 Problem Seizure disorder G40.909 Active 070987592 Problem History of CVA (cerebrovascular accident) Z86.73 Active 578710766 Problem Anxiety F41.9 Active 93788328 Problem Hypothyroidism (acquired) E03.9 Active 672223340 ALLERGIES No Known Allergies SOCIAL HISTORY Never Assessed PLAN OF CARE Activity Details Follow Up 4 Weeks Reason:f/u pain anxiety VITAL SIGNS Height 64.0 in 2016-12-25 Weight 153.3 lbs 2016-12-25 Temperature 98.9 degrees Fahrenheit 2016-12-25 Heart Rate 84 bpm 2016-12-25 Respiratory Rate 20 2016-12-25 BMI 26.31 kg/m2 2016-12-25 Blood pressure systolic 132 mmHg 2016-12-25 Blood pressure diastolic 82 mmHg 2016-12-25 MEDICATIONS Medication Instructions Dosage Frequency Start Date End Date Duration Status Ziac 5-6.25 MG TAKE 1 TABLET ONCE A DAY FOR 30 DAYS 30 Active Cymbalta 60 MG Orally Once a day 1 capsule 24h Active Hydrocodone-Acetaminophen 10-325 MG Orally 3 times a day May not fill till 1 tablet as needed 28 days Active Lipitor 40 mg Orally Once a day 1 tablet 24h 30 days Active PredniSONE 20 mg Orally Once a day 2 tablet 24h December, December, 05 days Active Prilosec 20 MG Orally Once a day 1 capsule 24h Active Cymbalta 60 MG Orally Once a day 1 capsule 24h Active Furosemide 80 MG Orally Once a day as needed 1 tablet take for 3 days Active Levothyroxine Sodium 50 MCG Orally Once a day 1 tablet on an empty stomach in the morning 24h Active HydrOXYzine HCl 25 MG Orally bid prn 1 tablet as needed December, 30 days Active Metformin HCl 500 MG Orally Twice a day 1 tablet with meals 12h Active Lamisil 250 MG Orally Once a day 1 tablet 24h 30 days Active Bisoprolol-Hydrochlorothiazide 5-6.25 MG Orally Once a day 1 tablet 24h Active Xanax 1 MG Orally 3 times a day May not fill till 12/05/16 1 tablet 28 days Active Flonase Allergy Relief 50 MCG/ACT Nasally Once a day 1 spray in each nostril 24h Oct, 30 day(s) Active Omeprazole 20 MG Orally Once a day 1 capsule 24h Active Aspirin 325 MG Orally Once a day 1 tablet 24h Active Keppra 500 mg Orally twice a day 1 tablet 12h Active RESULTS No Results PROCEDURES Procedure Date Ordered Result Body Site [facility] VISIT ESTABLISHED PATIENT December 25, 2016 IMMUNIZATIONS No Known Immunizations MEDICAL (GENERAL) [...] Hospitalization History Seizures 2015 Hospitalization History Stroke 2005 Hospitalization History Seizures 04/16/2017
--- OUTSIDE RECORDS SUMMARY | 2017-10-02 16:50 | XMS REPORT | Continuity of Care Document ---
Author Author [facility] Address Unknown Phone Unavailable Allergies There is no data. Medications There is no data. Problems There is no data. Procedures There is no data. Results There is no data. Encounters ACCT No. Visit Date/Time Discharge Status Pt. Type Provider Facility Loc./Unit Complaint [id number] 09/10/2017 16:36:46 09/10/2017 23:59:59 CLS Outpatient Golden Barron [id number] 06/30/2017 15:46:21 06/30/2017 23:59:59 CLS Outpatient Tennille Geronimo [id number] 08/29/2016 15:34:53 08/29/2016 23:59:59 CLS Outpatient Frank Alcaraz [id number] 06/06/2016 11:19:31 06/06/2016 23:59:59 CLS Outpatient Renzo Stout [id number] 05/29/2016 14:59:04 05/29/2016 23:59:59 CLS Outpatient Ajith Griffin [id number] 08/19/2015 21:38:57 08/19/2015 23:59:59 CLS Outpatient Tennille Geronimo [id number] 04/13/2015 12:10:45 04/13/2015 23:59:59 CLS Outpatient Tennille Geronimo [id number] 03/20/2014 21:19:05 03/20/2014 23:59:59 CLS Outpatient Tennille Geronimo [id number] 03/19/2014 21:29:26 03/19/2014 23:59:59 CLS Outpatient Umesh Odell [id number] 03/14/2014 13:29:40 03/14/2014 23:59:59 CLS Outpatient Momo Lua
--- OUTSIDE RECORDS SUMMARY | 2017-10-02 16:50 | XMS REPORT ---
Author Author MIMI VELIZ Organization [facility] Address [address] [place] [address] Care Team Providers Care Deportation Officer Name Role Phone MIMI VELIZ Unavailable PROBLEMS Type Condition ICD9-CM Code OOS04-IO Code Onset Dates Condition Status SNOMED Code Problem Moderate episode of recurrent major depressive disorder F33.1 Active 021342270 Problem Toenail fungus B35.1 Active 344340284 Problem Hyperlipidemia, unspecified hyperlipidemia type E78.5 Active 15357951 Problem Type 2 diabetes mellitus without complication, without long-term current use of insulin E11.9 Active 806912726 Problem Seasonal allergic rhinitis, unspecified allergic rhinitis trigger J30.2 Active 076257080 Problem Bunion of great toe of right foot M21.611 Active 922931029 Problem Seizure disorder G40.909 Active 874252002 Problem History of CVA (cerebrovascular accident) Z86.73 Active 064135902 Problem Anxiety F41.9 Active 81955537 Problem Hypothyroidism (acquired) E03.9 Active 324140005 ALLERGIES No Information SOCIAL HISTORY Never Assessed PLAN OF CARE VITAL SIGNS MEDICATIONS Medication Instructions Dosage Frequency Start Date End Date Duration Status HydrOXYzine HCl 25 MG Orally bid prn 1 tablet as needed December, 30 days Active RESULTS No Results PROCEDURES No [...]
[2017-10-02] MEDS: HYDROcodone/APAP 5 MG/325 MG (LORTAB) TAB PO PRN ×2 (16:54→16:55)
--- NOTE | 2017-10-02 17:00 | OPERATIVE REPORT ---
DATE OF SERVICE: 10/02/2017 SURGEON: Kianna Shultz DPM. PREOPERATIVE DIAGNOSES: 1. Hallux abductovalgus metatarsal primus varus, right foot. 2. Hammer digit syndrome, right second toe. POSTOPERATIVE DIAGNOSES: 1. Hallux abductovalgus metatarsal primus varus, right foot. 2. Hammer digit syndrome, right second toe. 3. Degenerative joint disease, right first metatarsophalangeal joint. PROCEDURE: 1. Arthrodesis of the right first metatarsophalangeal joint. 2. Reduction of hammertoe, right second digit. WOUND CLASS: Clean. ANESTHESIA: General. HEMOSTASIS: Pneumatic thigh tourniquet at 250 mmHg. INDICATION: This 57-year-old female presents complaining of a painful bunion and hammertoe, right foot. She has tried conservative therapy without satisfactory result and the patient is agreeable to surgical intervention after risks and complications were discussed at length. No guarantees were extended to the patient and she is willing to proceed. DESCRIPTION OF PROCEDURE: The patient was brought back to the operating table, placed in a secure supine position. A general anesthetic was then induced after an appropriate time out was performed. A pneumatic thigh tourniquet was placed on the right lower extremity over several layers of padding. The right foot was then prepped and draped in the normal sterile manner. The right foot was then elevated and allowed to exsanguinate after which the tourniquet was inflated to 250 mmHg. Attention was then directed to the dorsal aspect of the right first metatarsophalangeal joint where a 6 cm longitudinal linear incision was created. The incision was deepened in the same plane with great care to identify and retract all vital neurovascular structures. All the necessary blood vessels were cauterized as encountered. The incision was deepened down to the capsular tissue where a longitudinal capsulotomy was performed. The capsular tissue was reflected medially and laterally exposing the hypertrophic medial eminence to the first metatarsal head, which was resected utilizing a power sagittal saw. Next, utilizing a cup and cone reamers, the articular cartilage was removed from the first metatarsal head as well as the base of the proximal phalanx. Prior to performing this maneuver, it was evident that there was a loss of approximately 50% of the articular cartilage to the plantar medial aspect of the right first metatarsal head as well as significant reduction of cartilage to the dorsal aspect of the first metatarsal head. The wounds were flushed with copious amounts of normal saline utilizing a 0.045 K wire. The head of the first metatarsal and base of the proximal phalanx were fenestrated. The phalanx was held in alignment with some slight lateral deviation and elevation beyond what would be the flat weightbearing surface for the foot. This was confirmed by utilizing a flat surface and simulating weightbearing prior to screw fixation. A K-wire was driven from distal medial to proximal lateral across the arthrodesis site and a 3.0 cortical screw of 18 mm length was performed. Next, utilizing a dorsal plate provided by [employer], 3.0 screws were utilized for the plate, the distal three were 10, 12 and 12 mm of length with excellent cortical purchase. Next, the nonlocking screw was placed to the most proximal aspect of the plate securing compression. It was a 3.0 screw of 14 mm of length. Next 16 mm of length was performed. Excellent bony apposition and fixation was appreciated at this time. The wound was flushed with copious amounts of normal saline and closure was then performed in layers. Deep closure was performed with 3-0 Vicryl, superficial with 4-0 Vicryl, skin closure with 4-0 Prolene in a horizontal mattress type stitch. Attention was then directed to the right second toe where a 4 cm longitudinal linear incision was created from the metatarsophalangeal joint to the distal interphalangeal joint. The incision was deepened in the same plane with great care to identify and retract all vital neurovascular structures. All the necessary blood vessels were cauterized as encountered. The incision was deepened down the extensor tendon where a Z-slide lengthening was performed. The extensor tendon was reflected proximally exposing the metatarsophalangeal joint where a transverse capsulotomy was performed as well as a release of the medial lateral collateral ligaments. The proximal phalanx came down into rectus alignment. Next, attention was then directed to the proximal interphalangeal joint where a transverse capsulotomy was performed as well as release of the medial and lateral collateral ligaments. The head was then fashioned into a peg utilizing a power sagittal saw and power ney and a hole was created to the base of the middle phalanx with a power ney. The wounds were flushed with copious amounts of normal saline. A 0.054 K wire smooth was utilized for fixation for the peg-in-hole procedure. Excellent reduction of the hammertoe deformity was appreciated at this time. The K wire was extended from the proximal phalanx out the end of the toe and cut at a length of approximately 1 cm and then a protective ball over the end of the wire. The wound was flushed with copious amounts of normal saline and closure was then performed in layers. Deep closure was performed with 3-0 Vicryl, superficial with 4-0 Vicryl, skin closed with 4-0 Prolene in a horizontal mattress type stitch. Postoperative injection consisted of 20 mL of 0.5% Marcaine injected in a local infusion to the surgical site. Postoperative dressing consisted of Betadine soaked Adaptic, sterile 4 x 4, sterile Kerlix all secured with a Coban wrap. The patient tolerated the anesthesia and procedure well, was transported from the operating room to the recovery area with vital signs stable and vascular status intact to all digits of the right foot. The patient is to be nonweightbearing on the right foot. She is to follow up in my office in 10 days' period of time for removal of sutures. She is to keep the dressing dry, clean and intact. She indicated that she quit smoking a week ago and she committed to nonsmoking during the recovery period, which is four to six weeks. Job ID: [id number] DocumentID: [id number] Dictated Date: 10/02/2017 15:23:56 Verification Clerk Date: 10/02/2017 16:59:52 Dictated By: MARCO A GRACIA
[2017-10-02 17:15] VITALS: BP 112/70
== END 2017-10-02 17:15 | disposition home or self-care (01) ==
LOC: SDC 11:18
PROVIDERS: ATTEND Podiatrist Foot & Ankle Surgery
DX: M20.11 Hallux valgus (acquired), right foot (principal); M20.41 Other hammer toe(s) (acquired), right foot; M19.071 Primary osteoarthritis, right ankle and foot; E11.40 Type 2 diabetes mellitus with diabetic neuropathy, unspecified; I10 Essential (primary) hypertension; R56.9 Unspecified convulsions; E78.5 Hyperlipidemia, unspecified; F41.9 Anxiety disorder, unspecified; F32.9 Major depressive disorder, single episode, unspecified; K21.9 Gastro-esophageal reflux disease without esophagitis; F17.210 Nicotine dependence, cigarettes, uncomplicated; I69.351 Hemiplegia and hemiparesis following cerebral infarction affecting right dominant side; Z79.84 Long term (current) use of oral hypoglycemic drugs; Z79.899 Other long term (current) drug therapy
CPT/HCPCS: 73620; 82962